=== PATIENT | female | born 1940 | race Caucasian/White ===

== ENCOUNTER → 2021-01-25 13:07 | Outpatient (CLI) | payer MEDICARE, OTHER, SELFPAY ==
[2021-01-25 14:55] LABS: Erythrocyte Sedimentation Rate 27 mm/hr (0-30)
[2021-01-25 15:25] LABS: CRP < 2.90 mg/L (0.0-3.0); Rheumatoid Factor < 10.0 IU/mL (<15)
[2021-01-27 14:09] LABS: Anti-Scleroderma-70 AB <0.2 AI (0.0-0.9)
[2021-01-27 15:00] LABS: ANTINUCLEAR ANTIBODIES DIRECT Negative (Negative); Anti-dsDNA Ab 1 IU/mL (0-9)
[2021-01-28 10:44] LABS: Angiotensin Convert Enzyme 32 U/L (14-82); Cytoplasmic Ab (C-ANCA) <1:20 titer (Neg:<1:20)
[2021-01-28 10:53] LABS: CCP IgG Antibodies 8 units (0-19); Perinuclear Ab (P-ANCA) <1:20 titer (Neg:<1:20)
== END ==
PROVIDERS: PCP Family Medicine; Referring Provider Internal Medicine Pulmonary Disease; Visit Provider Internal Medicine Pulmonary Disease
DX: J84.10 Pulmonary fibrosis, unspecified (principal); I10 Essential (primary) hypertension
CPT/HCPCS: 36415; 82164; 85652; 86038; 86140; 86200; 86225; 86235; 86256; 86431

== ENCOUNTER 2021-05-13 12:37 | Outpatient (RCR) | payer MEDICARE, OTHER, SELFPAY ==
[2021-05-13 15:23] LABS: AST(SGOT) 24 U/L (15-37); Alanine Aminotransfer ALT/SGPT 30 U/L (13-56); Albumin, Serum 3.2 g/dL (3.2-5.0); Alkaline Phosphatase 79 U/L (45-117); Bilirubin, Direct 0.14 mg/dL (0.00-0.30); Globulin 4.2 g/dL (2.2-4.2); Protein, Total 7.4 g/dL (6.4-8.2)
== END 2021-06-11 18:00 | disposition home or self-care (01) ==
LOC: MTLAB 12:37
PROVIDERS: PCP Family Medicine; Referring Provider Internal Medicine Pulmonary Disease; Visit Provider Internal Medicine Pulmonary Disease
DX: Z79.899 Other long term (current) drug therapy (principal)
CPT/HCPCS: 36415; 80076

== ENCOUNTER 2021-05-19 15:04 | Emergency (ER) | payer MEDICARE, OTHER, SELFPAY ==
[2021-05-19 15:05] VITALS: BP 141/83; PULSE 87; RESP 18; TEMP 37.7; O2SAT 94; BMI 42.0
[2021-05-19 15:21] VITALS: BP 158/83; PULSE 84; RESP 18; O2SAT 95
--- NOTE | 2021-05-19 15:57 | EKG12_ITS ---
Test Reason : DIZZINESS Blood Pressure : / mmHG Vent. Rate : 070 BPM Atrial Rate : 070 BPM P-R Int : 154 ms QRS Dur : 082 ms QT Int : 406 ms P-R-T Axes : 000 -17 022 degrees QTc Int : 438 ms Normal sinus rhythm Inferior infarct , age undetermined Abnormal ECG Confirmed by ISAAC ALMONTE, ALEX ([id number]), video news editor HUMBLE QUIJANO ([id number]) on 05/23/2021 9:36:12 AM Referred By: GUIDO Confirmed By:ALEX GRAY MD
--- NOTE | 2021-05-19 16:02 | EDS_ITS ---
HPI History of Present Illness Chief Complaint: Dizziness Detail of Chief Complaint: Dizziness which patient defines as lightheaded Informant: patient and family Onset/Context/Timing Onset: Today and Hours Context: Sudden Onset Timing: Intermittent Quality: Lightheaded Location: Home Current Severity: Gone Maximum Severity: Severe Worsened by: Upright position Relieved by: Supine Narrative Narrative: Patient is an 81-year-old woman who was recently started on medicine for pulmonary hypertension. An uncommon side effect is dizziness. However patient has symptoms of infection. Patient patient states she was sitting in the chair when she had lightheaded and fell off. She denies head trauma. Denies loss conscious. She states her neck is stiff. The neck was stiff prior to the fall. Last evening she felt sick with nausea. She did have episode of vomiting. 10 episode of vomiting when the squad lifted her from the floor. She has been vaccinated for both Covid and influenza. She denies diarrhea. She denies urologic symptoms. She denies the room spinning or her spinning Prior similar symptoms: No Recent Illness/Hospitalization: No PFSH PFSH Medical History Hypertension Non-smoker Pulmonary fibrosis Home Medications aspirin 81 mg PO DAILY 05/19/21 [History Last Taken Unknown] atenolol 100 mg PO QHS 05/19/21 [History Last Taken Unknown] atorvastatin 20 mg PO QHS 05/19/21 [History Last Taken Unknown] doxazosin 2 mg PO DAILY 05/19/21 [History Last Taken Unknown] niacin 500 mg PO DAILY 05/19/21 [History Last Taken Unknown] nintedanib [Ofev] 150 mg PO BID 05/19/21 [History Last Taken Unknown] sulfamethoxazole-trimethoprim 1 tab PO BID #14 tablet 05/19/21 [Rx Last Taken Unknown] Allergy/AdvReac Type Severity Reaction Status Date / Time No Known Allergies Allergy Verified 05/19/21 15:06 Surgical History History of partial hysterectomy History of total right knee replacement Social History (Updated 05/19/21 @ 16:[address] Deep Jimenez MD) household members: family Smoking Status: Never smoker substance use type: does not use ROS ROS ED Constitutional Constitutional ED: Reports chills and sweats; Denies fever(s) Eyes Eyes: Denies blurry vision, change in vision or diplopia ENT ENT ED: Denies ear pain, rhinorrhea or sore throat Cardiovascular Cardiovascular: Denies chest pain, orthopnea, palpitations or paroxysmal nocturnal dyspnea Respiratory/Chest Respiratory/Chest: Reports cough, dyspnea and dyspnea on exertion; Denies orthopnea, paroxysmal nocturnal dyspnea or sputum Gastrointestinal Gastrointestinal: Reports nausea and vomiting; Denies abdominal pain, constipation, diarrhea or melena Genitourinary Genitourinary ED: Denies dysuria, hematuria or urinary frequency Musculoskeletal Musculoskeletal: Denies arthralgias, back pain, myalgias or neck pain Integumentary Denies abscess, Abrasions or rash Neurologic Neurologic: Reports weakness; Denies headache(s) or paresthesias Endocrine Endocrinology: Denies polydipsia, polyphagia or polyuria EXAM Physical Exam Const Vital Signs: 05/19/21 15:05 05/19/21 15:21 05/19/21 15:23 Temperature 99.9 F H Temperature Source Temporal Pulse Rate 87 84 Pulse Rate [Lying] Pulse Rate [Sitting] Pulse Rate [Standing] Respiratory Rate 18 18 Respiratory Effort Normal Respiratory Pattern Normal Blood Pressure 141/83 H 158/83 H Blood Pressure [Lying] Blood Pressure [Sitting] Blood Pressure [Standing] Blood Pressure Mean 102 108 Blood Pressure Mean [Lying] Blood Pressure Mean [Sitting] Blood Pressure Mean [Standing] Pulse Ox 94 95 Oxygen Delivery Method Room Air Room Air 05/19/21 16:32 05/19/21 17:30 05/19/21 18:43 Temperature Temperature Source Pulse Rate 67 63 Pulse Rate [Lying] 66 Pulse Rate [Sitting] 70 Pulse Rate [Standing] 82 Respiratory Rate 21 H 18 Respiratory Effort Respiratory Pattern Blood Pressure 143/75 H 147/89 H Blood Pressure [Lying] 139/73 H Blood Pressure [Sitting] 148/100 H Blood Pressure [Standing] 130/100 H Blood Pressure Mean 97 108 Blood Pressure Mean [Lying] 95 Blood Pressure Mean [Sitting] 116 Blood Pressure Mean [Standing] 110 Pulse Ox 95 95 Oxygen Delivery Method Room Air Room Air Positive well nourished and well developed General Appearance ED: well developed; Negative for cyanotic, diaphoretic, NAD or pallor HEENT Reports dry mucous membranes; Denies TM's clear Negative for trauma or tenderness Tympanic Membrane ED: Negative for TM's clear Mouth ED: Yes dry mucous membranes Mouth: dry mucous membranes Eyes PERRL and EOMs intact bilaterally Eyes Narrative: There is no nystagmus with central gaze or lateral gaze. General Eye ED: Negative for pale conjunctiva or scleral icterus Neck no lymphadenopathy, supple and no JVD General: tenderness Chest Wall inspection of chest normal and palpation of chest normal Resp No normal respiratory effort and No clear to auscultation bilaterally Auscultation: rales bilateral base (Right greater than left) Cardio regular rate, regular rhythm, S1 normal heart sound, S2 normal heart sound and no murmurs GI normal to inspection, nondistended, normoactive bowel sounds, non-tender and non-distended Palpation: soft Back/Spine no CVA tenderness Cervical Spine: Negative for cervical spine tenderness Thoracic Spine / Upper Back: Negative for thoracic spinal tenderness or paraspinal muscle tenderness Extremity normal to inspection General Extremety ED: Negative for edema or tenderness General Extremity: Negative for edema Neuro oriented x3, CN's II-XII intact bilaterally and no sensory deficits noted Sensorium / Orientation: alert Motor Exam: strength 5/5 throughout Psych mental status grossly normal Skin no rashes or lesions noted and no wounds General Skin Exam: Negative for jaundice or pallor MDM MDM MDM Narrative Medical decision making narrative: Presents with infectious-like symptoms and orthostatic symptoms. Fluid bolus was ordered. Even though she was vaccinated will test for Covid. Chest x-ray was obtained to confirm suspicion for pneumonia based on auscultatory findings. EKG to rule out ischemia. Appropriate blood work. Lab Data Attestation: I reviewed the patient's lab results. Lab results narrative: Patient has no sirs criteria. Urine is consistent with infection. Patient is a candidate for outpatient therapy. Labs: Laboratory Results - last 24 hr 05/19/21 05/19/21 05/19/21 16:11 16:11 16:11 WBC 10.6 RBC 4.07 L Hgb 12.4 Hct 36.2 L MCV 88.9 MCH 30.5 MCHC 34.3 RDW Std Deviation 49.3 H RDW Coeff of Nona 15.2 H Plt Count 188 MPV 10.2 Immature Gran % (Auto) 0.600 Neut % (Auto) 88.8 H Lymph % (Auto) 2.7 L [place] % (Auto) 5.8 Eos % (Auto) 1.9 Baso % (Auto) 0.2 Absolute Neuts (auto) 9.4 H Absolute Lymphs (auto) 0.29 L Nucleated RBC % 0 Differential Comment SEE COMMENT Platelet Estimate ADEQUATE RBC Morphology N CHROM Anisocytosis RARE Macrocytosis RARE Sodium 140 Potassium 4.0 Chloride 106 Carbon Dioxide 26.0 Anion Gap 8 BUN 17 Creatinine 0.85 Estim Creat Clear Calc 41.05 Est GFR (MDRD) Af Amer 83 Est GFR (MDRD) Non-Af 68 BUN/Creatinine Ratio 20.0 Glucose 154 H Lactic Acid 1.8 Calcium 8.8 Urine Color Urine Clarity Urine pH Ur Specific [place] Urine Protein Urine Glucose (UA) Urine Ketones Urine Occult Blood Urine Nitrite Urine Bilirubin Urine Urobilinogen Ur Leukocyte Esterase Urine RBC Urine WBC Ur Squamous Epith Cells Urine Bacteria Urine Mucus 05/19/21 18:50 WBC RBC Hgb Hct MCV MCH MCHC RDW Std Deviation RDW Coeff of [place] Plt Count MPV Immature Gran % (Auto) Neut % (Auto) Lymph % (Auto) [place] % (Auto) Eos % (Auto) Baso % (Auto) Absolute Neuts (auto) Absolute Lymphs (auto) Nucleated RBC % Differential Comment Platelet Estimate RBC Morphology Anisocytosis Macrocytosis Sodium Potassium Chloride Carbon Dioxide Anion Gap BUN Creatinine Estim Creat Clear Calc Est GFR (MDRD) Af Amer Est GFR (MDRD) Non-Af BUN/Creatinine Ratio Glucose Lactic Acid Calcium Urine Color Yellow Urine Clarity Cloudy Urine pH 7.0 Ur Specific [place] 1.010 Urine Protein 30 H Urine Glucose (UA) Normal Urine Ketones 5 H Urine Occult Blood 25 H Urine Nitrite Negative Urine Bilirubin Negative Urine Urobilinogen 1 H Ur Leukocyte Esterase 500 H Urine RBC 0-5 SEEN Urine WBC 25-50 SEEN Ur Squamous Epith Cells 0-5 SEEN Urine Bacteria 2+ Urine Mucus 0 SEEN EKG Initial EKG: Attestation: I personally reviewed and interpreted this EKG as follows: Interpretation: Sinus Rhythm (Ventricular rate 70. MS interval 154 ms. QRS duration 82 ms. QT duration 406 ms. [place] is normal.) Discharge Plan Triage Chief Complaint: Dizziness ED Provider: Deep Jimenez Dx/Rx/DC Orders Clinical Impression: Orthostatic dizziness, Urinary tract infection Prescriptions: New sulfamethoxazole-trimethoprim [sulfamethoxazole-trimethoprim] 1 TABLET tablet 1 tab PO BID Qty: 14 RF: 0 No Action atorvastatin 20 mg tablet 20 mg PO QHS RF: 0 atenolol 100 mg tablet 100 mg PO QHS RF: 0 niacin 500 mg tablet extended release 24 hr 500 mg PO DAILY RF: 0 aspirin 81 mg Tablet 81 mg PO DAILY RF: 0 doxazosin 2 mg tablet 2 mg PO DAILY RF: 0 Ofev 150 mg capsule 150 mg PO BID RF: 0 Primary Care Provider: Angelo Oneil Referrals: Angelo Oneil DO [Primary Care Provider] - 3-5 Days if not improving Disposition Disposition: Home, Self Care
[2021-05-19 16:24] LABS: Absolute Lymphocyte Count 0.29 X10^3/uL (0.83-4.51); Absolute Neutrophil Count 9.4 X10^3/uL (2.0-7.7); Basophil# 0.02 X10^3/uL; Basophil% 0.2 % (0-1); Eosinophils% 1.9 % (0-5); Hematocrit 36.2 % (37-47); Hemoglobin 12.4 g/dL (12.0-15.0); Lymphocyte # 0.29 X10^3/ul (0.83-4.51); Lymphocyte % 2.7 % (19-41); Mean Corp Hgb Conc 34.3 g/dL (32-36); Mean Corpuscular Hgb 30.5 pg (27.0-32.0); Mean Corpuscular Volume 88.9 fL (81-99); Mean Platelet Vol. 10.2 fl (6.2-12.0); Monocyte# 0.62 X10^3/uL; Monocyte% 5.8 % (0-10); NRBC Flagged by Analyzer 0 % (0-5); Neutrophil # 9.42 X10^3/uL (2.7-7.7); Neutrophil % 88.8 % (47-70); POSITIVE DIFFERENTIAL YES; Platelet Count 188 K/mm3 (150-450); RBC Distribution Width CV 15.2 % (11.6-14.6); RBC Distribution Width SD 49.3 fl (35.1-43.9); Red Blood Count 4.07 M/mm3 (4.2-5.4); White Blood Count 10.6 K/mm3 (4.4-11.0)
[2021-05-19 16:28] LABS: Differential Indicated SCAN CRITERIA MET
[2021-05-19 16:32] VITALS: BP 130/100; BP 139/73; BP 148/100; PULSE 66; PULSE 70; PULSE 82
[2021-05-19 16:37] LABS: Anion Gap 8 (5-15); BUN 17 mg/dL (7-18); Calcium,Total 8.8 mg/dL (8.5-10.1); Chloride 106 mmol/L (98-107); Creatinine, Serum 0.85 mg/dL (0.55-1.02); EST Glomerular Filtration Rate 68 mL/min (>60); Est Glom Filt Rate - Afr Amer 83 mL/min (>60); Estimated Creatinine Clearance 41.05 ml/min; Glucose 154 mg/dL (74-106); Sodium Level 140 mmol/L (136-145)
[2021-05-19 16:48] LABS: Lactic Acid 1.8 mmol/L (0.4-1.9)
[2021-05-19 17:08] LABS: Anisocytosis RARE; Macrocytosis RARE; Platelet Estimate ADEQUATE (ADEQ); Red Cell Morphology N CHROM NORMAL (NORM C&C)
[2021-05-19 17:30] VITALS: BP 143/75; PULSE 67; RESP 21; O2SAT 95
[2021-05-19 18:43] VITALS: BP 147/89; PULSE 63; RESP 18; O2SAT 95
[2021-05-19 19:08] LABS: Mucous, Urine 0 SEEN /hpf (<or=2+)
[2021-05-19 19:11] LABS: Color, Urine Yellow (Yellow); Glucose, Dipstick Normal (Normal); Ketone-Dipstick 5 mg/dl (Negative); Leukocyte Esterase-Dipstick 500 /ul (Negative); Nitrite-Dipstick Negative (Negative); Occult Blood-Urine 25 /ul (Negative); Protein-Dipstick 30 mg/dl (Negative); Urine Bilirubin Dipstick Negative (Negative); Urine Clarity Cloudy (Clear); Urine Urobilinogen 1 mg/dl (Normal)
[2021-05-19 19:35] LABS: Squamous Epithelial Cells - UA 0-5 SEEN /hpf (5-10); White Blood Cells 25-50 SEEN /hpf (0-5)
[2021-05-19 19:37] LABS: Bacteria 2+ /hpf (None Seen); Red Blood Cells-Urine 0-5 SEEN /hpf (0-5)
[2021-05-19 20:00] VITALS: BP 109/65; PULSE 64; RESP 18; O2SAT 94
[2021-05-19] MEDS: Smz/Tmp Ds Tablet 1 TABLET PO (20:04)
== END 2021-05-19 20:14 | disposition home or self-care (01) ==
PROVIDERS: Emergency Provider Emergency Medicine; PCP Family Medicine
DX: R42 Dizziness and giddiness (principal); N39.0 Urinary tract infection, site not specified; I10 Essential (primary) hypertension; I27.20 Pulmonary hypertension, unspecified; Z79.899 Other long term (current) drug therapy; Z79.82 Long term (current) use of aspirin
CPT/HCPCS: 80048; 81001; 83605; 85025; 87426; 93005; 96360; 96361; 99285; J7030; A4216

== ENCOUNTER 2021-08-09 12:32 | Outpatient (RCR) | payer MEDICARE, OTHER, SELFPAY ==
[2021-08-09 15:46] LABS: AST(SGOT) 23 U/L (15-37); Alanine Aminotransfer ALT/SGPT 31 U/L (13-56); Albumin, Serum 3.3 g/dL (3.2-5.0); Alkaline Phosphatase 75 U/L (45-117); Bilirubin, Direct 0.17 mg/dL (0.00-0.30); Globulin 4.1 g/dL (2.2-4.2); Protein, Total 7.4 g/dL (6.4-8.2)
== END 2021-09-08 18:00 | disposition home or self-care (01) ==
LOC: MTLAB 12:32
PROVIDERS: PCP Family Medicine; Referring Provider Internal Medicine Pulmonary Disease; Visit Provider Internal Medicine Pulmonary Disease
DX: J84.10 Pulmonary fibrosis, unspecified (principal); Z79.899 Other long term (current) drug therapy
CPT/HCPCS: 36415; 80076

== ENCOUNTER 2021-09-19 12:42 | Outpatient (RCR) | payer MEDICARE, OTHER, SELFPAY ==
[2021-09-19 15:43] LABS: AST(SGOT) 22 U/L (15-37); Alanine Aminotransfer ALT/SGPT 30 U/L (13-56); Albumin, Serum 3.6 g/dL (3.2-5.0); Alkaline Phosphatase 73 U/L (45-117); Bilirubin, Direct 0.17 mg/dL (0.00-0.30); Globulin 3.8 g/dL (2.2-4.2); Protein, Total 7.4 g/dL (6.4-8.2)
== END 2021-09-19 18:00 ==
LOC: MTLAB 12:42
PROVIDERS: PCP Family Medicine; Referring Provider Internal Medicine Pulmonary Disease; Visit Provider Internal Medicine Pulmonary Disease
DX: J84.10 Pulmonary fibrosis, unspecified (principal); Z79.899 Other long term (current) drug therapy
CPT/HCPCS: 36415; 80076

== ENCOUNTER 2021-10-20 13:16 | Outpatient (RCR) | payer MEDICARE, OTHER, SELFPAY ==
[2021-10-20 15:39] LABS: AST(SGOT) 29 U/L (15-37); Alanine Aminotransfer ALT/SGPT 55 U/L (13-56); Albumin, Serum 3.5 g/dL (3.2-5.0); Alkaline Phosphatase 86 U/L (45-117); Bilirubin, Direct 0.14 mg/dL (0.00-0.30); Globulin 4.1 g/dL (2.2-4.2); Protein, Total 7.6 g/dL (6.4-8.2)
== END 2021-10-20 18:00 | disposition home or self-care (01) ==
LOC: MTLAB 13:16
PROVIDERS: PCP Family Medicine; Referring Provider Internal Medicine Pulmonary Disease; Visit Provider Internal Medicine Pulmonary Disease
DX: J84.10 Pulmonary fibrosis, unspecified (principal); Z79.899 Other long term (current) drug therapy
CPT/HCPCS: 36415; 80076

== ENCOUNTER 2022-01-19 14:11 | Outpatient (RCR) | payer MEDICARE, OTHER, SELFPAY ==
[2022-01-19 18:05] LABS: AST(SGOT) 59 U/L (15-37); Alanine Aminotransfer ALT/SGPT 123 U/L (13-56); Albumin, Serum 3.3 g/dL (3.2-5.0); Alkaline Phosphatase 81 U/L (45-117); Bilirubin, Direct 0.22 mg/dL (0.00-0.30); Protein, Total 7.3 g/dL (6.4-8.2)
== END 2022-01-19 18:00 | disposition home or self-care (01) ==
LOC: MTLAB 14:11
PROVIDERS: PCP Family Medicine; Referring Provider Internal Medicine Pulmonary Disease; Visit Provider Internal Medicine Pulmonary Disease
DX: J84.10 Pulmonary fibrosis, unspecified (principal); Z79.899 Other long term (current) drug therapy
CPT/HCPCS: 36415; 80076

== ENCOUNTER 2022-03-13 13:07 | Outpatient (RCR) | payer MEDICARE, OTHER, SELFPAY ==
[2022-03-13 15:44] LABS: AST(SGOT) 18 U/L (15-37); Alanine Aminotransfer ALT/SGPT 17 U/L (13-56); Albumin, Serum 3.2 g/dL (3.2-5.0); Alkaline Phosphatase 70 U/L (45-117); Bilirubin, Direct 0.14 mg/dL (0.00-0.30); Protein, Total 7.2 g/dL (6.4-8.2)
== END 2022-03-13 18:00 | disposition home or self-care (01) ==
LOC: MTLAB 13:07
PROVIDERS: PCP Family Medicine; Referring Provider Internal Medicine Pulmonary Disease; Visit Provider Internal Medicine Pulmonary Disease
DX: J84.10 Pulmonary fibrosis, unspecified (principal); Z79.899 Other long term (current) drug therapy
CPT/HCPCS: 36415; 80076

== ENCOUNTER 2022-04-17 11:11 | Outpatient (RCR) | payer MEDICARE, OTHER, SELFPAY ==
[2022-04-17 15:46] LABS: AST(SGOT) 15 U/L (15-37); Alanine Aminotransfer ALT/SGPT 16 U/L (13-56); Albumin, Serum 3.3 g/dL (3.2-5.0); Alkaline Phosphatase 69 U/L (45-117); Bilirubin, Direct 0.21 mg/dL (0.00-0.30); Globulin 3.9 g/dL (2.2-4.2); Protein, Total 7.2 g/dL (6.4-8.2)
== END 2022-05-10 18:00 | disposition home or self-care (01) ==
LOC: MTLAB 11:11
PROVIDERS: PCP Family Medicine; Referring Provider Internal Medicine Pulmonary Disease; Visit Provider Internal Medicine Pulmonary Disease
DX: J84.10 Pulmonary fibrosis, unspecified (principal); Z79.899 Other long term (current) drug therapy
CPT/HCPCS: 36415; 80076

== ENCOUNTER → 2022-05-02 | Outpatient (CLI) | payer MEDICARE, OTHER, SELFPAY ==
--- NOTE | 2022-05-02 12:55 | ECHOD_ITS ---
Reason For Study: PAH Procedure This was a 2D Doppler, Color Flow transthoracic echocardiogram. Exam performed in department. Left Ventricle Normal left ventricle. Mild concentric left ventricular hypertrophy. Left ventricular systolic function is normal. The estimated ejection fraction is 60 %. No regional wall motion abnormalities noted. Right Ventricle Normal RV size. Normal systolic function. Atria Normal left atrium. Normal right atrium. Bubble contrast study negative for right to left interatrial shunt. Mitral Valve There is mild to moderate mitral annular calcification. Mild (1+) mitral valve insufficiency. Tricuspid Valve Normal tricuspid valve. Mild (1+) tricuspid valve insufficiency. Pulmonary artery systolic pressure is 34 mmHg. Aortic Valve Trisinus/trileaflet aortic valve. Pulmonic Valve Normal pulmonic valve. Great Vessels Normal aortic root. The pulmonary artery is normal size. Normal inferior vena cava. Pericardium/Pleural No pericardial effusion. MMode/2D Measurements & Calculations LVIDd: 4.0 cm IVSd: 1.3 cm Ao root diam: 3.4 cm LVIDs: 3.0 cm LVPWd: 1.3 cm FS: 24.9 % LAV(MOD-bp): 61.0 ml LVAd ap4: 19.8 cm2 SV(MOD-sp4): 21.0 ml LAV(MOD-bp) Indexed: 31.4 ml/m2 LVLd ap4: 6.7 cm LAV(MOD-sp2): 60.4 ml EDV(MOD-sp4): 48.5 ml LAV(MOD-sp4): 54.4 ml EDV(sp4-el): 49.8 ml LVAs ap4: 13.7 cm2 LVLs ap4: 5.8 cm ESV(MOD-sp4): 27.4 ml ESV(sp4-el): 27.3 ml EF(MOD-sp4): 43.4 % EF(sp4-el): 45.2 % SV(sp4-el): 22.5 ml LA A4 area: 21.1 cm2 LA dimension(2D): 4.6 cm RA A4 area: 12.7 cm2 Time Measurements MV dec time: 0.22 sec Doppler Measurements & Calculations MV E max gera: 61.8 cm/sec Lat Peak E' Gera: 7.9 cm/sec Med Peak E' Gera: 3.6 cm/sec MV A max gera: 98.8 cm/sec E/E' lat: 7.9 E/E' med: 17.2 MV E/A: 0.63 MV V2 max: 103.7 cm/sec Ao V2 max: 130.8 cm/sec MV max P.3 mmHg MV dec slope: 279.2 cm/sec2 Ao max P.9 mmHg MV V2 mean: 50.5 cm/sec Ao V2 mean: 88.9 cm/sec MV mean P.2 mmHg Ao mean P.6 mmHg MV V2 VTI: 30.4 cm Ao V2 VTI: 32.2 cm LV V1 max: 99.2 cm/sec MR max gera: 506.0 cm/sec PA V2 max: 93.5 cm/sec LV V1 max P.9 mmHg MR max P.6 mmHg PA V2 mean: 67.6 cm/sec LV V1 mean P.9 mmHg LV V1 mean: 64.3 cm/sec LV V1 VTI: 24.3 cm TR max gera: 280.3 cm/sec TR max P.4 mmHg ECHO/Echo Complete Interpretation Summary Normal left ventricle. Mild concentric left ventricular hypertrophy. Left ventricular systolic function is normal. The estimated ejection fraction is 60 %. Bubble contrast study negative for right to left interatrial shunt. Mild (1+) mitral valve insufficiency. Pulmonary artery systolic pressure is 34 mmHg. Ordering Physician: Medardo Pearce V Referring Physician: Medardo Pearce V Performed By: Tasha Kelly RCS
== END | disposition home or self-care (01) ==
LOC: CVS 12:54
PROVIDERS: PCP Family Medicine; Referring Provider Internal Medicine Pulmonary Disease; Visit Provider Internal Medicine Pulmonary Disease
DX: R06.00 Dyspnea, unspecified (principal)
CPT/HCPCS: 93306; A4216

== ENCOUNTER 2022-05-18 11:22 | Outpatient (RCR) | payer MEDICARE, OTHER, SELFPAY ==
[2022-05-18 15:40] LABS: AST(SGOT) 22 U/L (15-37); Alanine Aminotransfer ALT/SGPT 24 U/L (13-56); Albumin, Serum 3.3 g/dL (3.2-5.0); Alkaline Phosphatase 73 U/L (45-117); Bilirubin, Direct 0.13 mg/dL (0.00-0.30); Globulin 3.6 g/dL (2.2-4.2); Protein, Total 6.9 g/dL (6.4-8.2)
== END 2022-05-18 18:00 | disposition home or self-care (01) ==
LOC: MTLAB 11:22
PROVIDERS: PCP Family Medicine; Referring Provider Internal Medicine Pulmonary Disease; Visit Provider Internal Medicine Pulmonary Disease
DX: J84.10 Pulmonary fibrosis, unspecified (principal); Z79.899 Other long term (current) drug therapy
CPT/HCPCS: 36415; 80076

== ENCOUNTER 2022-06-16 13:53 | Outpatient (RCR) | payer MEDICARE, OTHER, SELFPAY ==
[2022-06-16 15:59] LABS: AST(SGOT) 15 U/L (15-37); Alanine Aminotransfer ALT/SGPT 17 U/L (13-56); Albumin, Serum 3.3 g/dL (3.2-5.0); Alkaline Phosphatase 76 U/L (45-117); Bilirubin, Direct 0.17 mg/dL (0.00-0.30); Globulin 4.4 g/dL (2.2-4.2); Protein, Total 7.7 g/dL (6.4-8.2)
== END 2022-06-16 15:53 | disposition home or self-care (01) ==
LOC: MTLAB 13:53
PROVIDERS: PCP Family Medicine; Referring Provider Internal Medicine Pulmonary Disease; Visit Provider Internal Medicine Pulmonary Disease
DX: J84.10 Pulmonary fibrosis, unspecified (principal); Z79.899 Other long term (current) drug therapy
CPT/HCPCS: 36415; 80076

== ENCOUNTER 2022-07-10 13:36 | Emergency (ER) | payer MEDICARE, OTHER, SELFPAY ==
[2022-07-10 13:40] VITALS: BP 128/62; PULSE 99; RESP 26; TEMP 36.9; O2SAT 96; BMI 40.0
[2022-07-10 13:43] VITALS: BP 128/62; PULSE 99; RESP 25; TEMP 36.9; O2SAT 93
--- NOTE | 2022-07-10 14:05 | EX.ED.DYSGE1 ---
HPI History of Present Illness Chief Complaint: Dizziness Informant: patient and EMS Narrative Narrative: Patient presents as via EMS after having a minor fall without injury due to feeling dizzy/vertiginous this morning after getting up. She states she was unable to get up and her 83-year-old was not able to help lift her. EMS came to help her up, she was able to stand with their assistance and walk without difficulty, although she states she felt a little dizzy, and her blood pressure was in the 80s. That is not the case now. They did not intervene. Patient states she never felt lightheaded, near syncopal, or syncopal. She states this dizziness/spinning sensation occurs every single morning when she gets up it is intermittent, it is worse with position changes and turning her head, and usually by 11:30 AM the dizziness is gone and she goes the rest of the day without any dizziness. She states this has been the case every single morning for the last 2+ years since she has been on a new medication for her pulmonary fibrosis, Ofev. She states the dizziness is not new nor is it worse in the past week since she has felt like she had a cold. Her symptoms have been congestion, rhinorrhea, and cough with sputum that she feels like she is bringing up from her chest. She has albuterol aerosols at home, she has been doing nose periodically since she has had this cold for mild dyspnea, the albuterol helps. She denies any fevers, although she did feel some chills last night for the first time. She has been vaccinated against COVID and influenza. She denies any known exposures to any of those that she knows of. She denies any edema in her legs that is new or worse. She denies any other focal neurologic symptoms, ringing in her ears, earache, changes in her hearing, diplopia, or headache. [facility] Medical History Hypertension Non-smoker Pulmonary fibrosis Home Medications aspirin 81 mg tablet 81 mg PO DAILY 05/19/21 [History Last Taken Unknown] atenolol 100 mg tablet 100 mg PO QHS 05/19/21 [History Last Taken Unknown] atorvastatin 20 mg tablet 20 mg PO QHS 05/19/21 [History Last Taken Unknown] doxazosin 2 mg tablet 2 mg PO DAILY 05/19/21 [History Last Taken Unknown] niacin 500 mg tablet,extended release 24 hr 500 mg PO DAILY 05/19/21 [History Last Taken Unknown] nintedanib 150 mg capsule (Ofev) 150 mg PO BID 05/19/21 [History Last Taken Unknown] sulfamethoxazole 800 mg-trimethoprim 160 mg tablet 1 tab PO BID #14 TABLETS 05/19/21 [Rx Last Taken Unknown] albuterol sulfate 90 mcg/actuation aerosol inhaler inhalation 07/10/22 [History Last Taken Unknown] azithromycin 250 mg tablet 250 mg PO DAILY #4 TABLETS 07/10/22 [Rx Last Taken Unknown] meclizine 25 mg tablet 25 mg PO Q8H PRN PRN Dizziness #20 tabs 07/10/22 [Rx Last Taken Unknown] Allergy/AdvReac Type Severity Reaction Status Date / Time No Known Allergies Allergy Verified 05/19/21 15:06 Surgical History History of partial hysterectomy History of total right knee replacement Social History household members: family Smoking Status: Never smoker substance use type: does not use ROS ROS ED Constitutional Constitutional ED: Reports chills; Denies fever(s) Eyes Eyes: Denies change in vision or diplopia ENT ENT ED: Reports as per HPI, nasal congestion, rhinorrhea and vertigo; Denies ear pain, headache(s) or sore throat Cardiovascular Cardiovascular: Denies chest pain or palpitations Respiratory/Chest Respiratory/Chest: Reports cough and dyspnea Gastrointestinal Gastrointestinal: Denies abdominal pain, diarrhea, nausea or vomiting Genitourinary Genitourinary ED: Denies dysuria or hematuria Musculoskeletal Musculoskeletal: Denies back pain or neck pain Integumentary Denies abscess or rash Neurologic Neurologic: Denies headache(s), paresthesias or weakness Psychiatric Psychiatric: Denies anxiety or suicidal thoughts EXAM Physical Exam Const Vital Signs: 07/10/22 13:40 07/10/22 13:43 07/10/22 13:43 Temperature 98.5 F 98.5 F Temperature Source Temporal Temporal Pulse Rate 99 99 Respiratory Rate 26 H 25 H Respiratory Effort Normal Non-Labored Respiratory Depth Normal Respiratory Pattern Tachypnea Blood Pressure 128/62 H 128/62 H Blood Pressure Mean 84 84 Pulse Ox 96 93 Oxygen Delivery Method Room Air Room Air Room Air 07/10/22 14:23 07/10/22 15:00 Temperature Temperature Source Pulse Rate 101 H 97 Respiratory Rate 18 20 H Respiratory Effort Respiratory Depth Respiratory Pattern Normal Blood Pressure 147/90 H Blood Pressure Mean 109 Pulse Ox 93 Oxygen Delivery Method Room Air Positive well nourished and well developed Constitutional Narrative: Well-appearing, conversive in full sentences, no distress. Cooperative. Oriented. General Appearance ED: well developed and NAD HEENT Reports TM's clear and moist mucous membranes HEENT Narrative: Posterior oropharynx clear. No sinus tenderness. normocephalic and atraumatic Tympanic Membrane ED: Yes TM's clear Eyes PERRL and EOMs intact bilaterally Neck full ROM and supple Resp normal respiratory effort Resp Narrative: Inspiratory rhonchi diffusely, no expiratory Rales. Conversive in full sentences without distress. Cardio regular rate, regular rhythm and no murmurs GI non-tender and non-distended Auscultation: normoactive bowel sounds Palpation: soft Back/Spine no CVA tenderness General Back: other FROM Extremity normal to inspection General Extremety ED: Negative for edema, pulses abnormal or tenderness General Extremity: Negative for edema or pulses abnormal Neuro oriented x3, CN's II-XII intact bilaterally and no sensory deficits noted Neuro Narrative: Normal [id number] and [id number] bilaterally. No pathologic nystagmus, no vertical or rotatory nystagmus. Sensorium / Orientation: awake and alert Motor Exam: strength 5/5 throughout Psych mental status grossly normal Skin no rashes or lesions noted and no wounds MDM MDM MDM Narrative Medical decision making narrative: This patient basically called EMS for a lift assist. However her blood pressure was on the low side, so they recommended she come to the ED. Her blood pressure has been fine here in the ER, 128/62 and she did not feel lightheaded even when her blood pressure was low. This may have been erroneous, it may have been transient, we will continue to watch it. I do not think she was symptomatic hypotension. The vertiginous symptoms she has had every single morning, this morning she was off balance enough to fall, she is obese and I may have had a part in it but she could not get up because of that and her could not help her. I do not think she needs to have work-up for the vertigo emergently. I did a chest x-ray to evaluate for lower respiratory tract infections since she has pulmonary fibrosis, and it is difficult to evaluate for lower respiratory tract infections based on auscultation. 2 views of my interpretation does show some patchy interstitial infiltrates, radiology in agreement that this may represent pneumonia but she does not have an old one for us to compare it to. I think putting her on antibiotics and steroids to be reasonable. After an aerosol she did not feel much different, we ambulated her and she did okay, she had her pulse ox go down to 89% just very briefly, it antonio back up immediately upon resting. She has had no hypotension while she has been here, in fact without treatment her blood pressure is gone up to 147/90 I do not think she needs to be admitted or have further work-up emergently at this time. I have prescribed her some meclizine to use as needed in the mornings as well to see if that helps with her vertiginous symptoms which may or may not be a result of the biologic she is on for her pulmonary fibrosis. She can discuss whether or not to continue or discontinue that medication with her senior environmental engineer. During the exit interview, there is no other family they are in she reminds the patient and tells me that she was just at her senior environmental engineer seen there during this illness and prescribed prednisone, that she has just finished. She states that it did not make a major difference. She was not prescribed any antibiotics. I think it would be reasonable put her on antibiotics and we are canceling the prednisone. Radiography Diagnostic Testing: Clinical Impression(s) from Imaging Studies Chest X-Ray 07/10/22 14:15 IMPRESSION: Chronic interstitial changes in the lungs with mild right basilar opacity from atelectasis or pneumonia. Electronically Signed: Anne Jansen MD at 14:33 EST , Discharge Plan Triage Chief Complaint: Dizziness Other Complaint: Cold Sx ED Provider: Prabhjot Mcdermott Dx/Rx/DC Orders Clinical Impression: Episodic peripheral vertigo, Acute lower respiratory tract infection, Pulmonary fibrosis Instructions: Pulmonary Fibrosis, ED Vertigo, Unspecified Prescriptions: New azithromycin [azithromycin] 250 mg tablet 250 mg PO DAILY Qty: 4 0RF meclizine [meclizine] 25 mg tablet 25 mg PO Q8H PRN PRN (Reason: Dizziness) Qty: 20 0RF No Action atorvastatin 20 mg tablet 20 mg PO QHS atenolol 100 mg tablet 100 mg PO QHS niacin 500 mg tablet extended release 24 hr 500 mg PO DAILY aspirin 81 mg Tablet 81 mg PO DAILY doxazosin 2 mg tablet 2 mg PO DAILY Ofev 150 mg capsule 150 mg PO BID sulfamethoxazole-trimethoprim [sulfamethoxazole-trimethoprim] 1 TABLET tablet 1 tab PO BID Qty: 14 0RF Primary Care Provider: Angelo Oneil Referrals: Angelo Oneil DO [Primary Care Provider] - Medardo Pearce MD [Med Staff - Active Staff] - 3-5 Days if not improving Disposition Disposition: Home, Self Care
--- NOTE | 2022-07-10 14:15 | RAD_ITS ---
HISTORY: cough, SOB. TECHNIQUE: XR Chest 2 Views. COMPARISON: None. FINDINGS: CARDIOMEDIASTINAL BORDERS: Cardiac silhouette within normal limits in size. Mediastinal contour unremarkable with calcification of the aortic knob. LUNGS: Mild peripheral reticular opacities in the lungs with patchy right basilar opacity. Elevation of the right hemidiaphragm. PLEURA: No pleural effusion or pneumothorax seen. OSSEOUS STRUCTURES: Mild degenerative change. RAD/Chest PA and Lateral IMPRESSION: Chronic interstitial changes in the lungs with mild right basilar opacity from atelectasis or pneumonia. Electronically Signed: Anne Jansen MD at 14:33 EST ,
[2022-07-10] MEDS: Ipratropium/Albuterol Sulfate 3 ML AMPUL.NEB INHALATION (14:22)
[2022-07-10 14:23] VITALS: PULSE 101; RESP 18
[2022-07-10 15:00] VITALS: BP 147/90; PULSE 97; RESP 20; O2SAT 93
[2022-07-10 15:17] VITALS: O2SAT 93
--- NOTE | 2022-07-10 15:35 | ED.RN ---
PATIENT SPO2 DID DROP TO 89% BRIEFLY WITH PORTABLE SPO2 MONITOR, DURING WALK BACK TO ROOM PATIENT DID INCREASE BACK TO 90%. DR. ANDRES NOTIFIED THAT IT WAS A BRIEF EVENT AND PATIENT DENIED ANY NEW SHORTNESS OF BREATH AND SPO2 REMAINED IN 90'S FOR WALK AND WHEN SHE WAS BACK IN BED CAME BACK UP TO 93%.
[2022-07-10] MEDS: Meclizine HCl 25 MG Tablet PO (15:53)
[2022-07-10] MEDS: Azithromycin 250 MG Tablet 500 MG PO (15:53)
== END 2022-07-10 16:19 | disposition home or self-care (01) ==
PROVIDERS: Emergency Provider Emergency Medicine; PCP Family Medicine; Visit Provider Emergency Medicine
DX: H81.399 Other peripheral vertigo, unspecified ear (principal); J84.10 Pulmonary fibrosis, unspecified; J22 Unspecified acute lower respiratory infection
CPT/HCPCS: 71046; 87428; 94640; 99283

== ENCOUNTER 2022-07-17 10:19 | Outpatient (RCR) | payer MEDICARE, OTHER, SELFPAY ==
[2022-07-17 12:56] LABS: AST(SGOT) 12 U/L (15-37); Alanine Aminotransfer ALT/SGPT 25 U/L (13-56); Albumin, Serum 2.9 g/dL (3.2-5.0); Alkaline Phosphatase 67 U/L (45-117); Bilirubin, Direct 0.11 mg/dL (0.00-0.30); Globulin 4.6 g/dL (2.2-4.2); Protein, Total 7.5 g/dL (6.4-8.2)
== END 2022-07-17 18:00 | disposition home or self-care (01) ==
LOC: MTLAB 10:19
PROVIDERS: PCP Family Medicine; Referring Provider Internal Medicine Pulmonary Disease; Visit Provider Internal Medicine Pulmonary Disease
DX: J84.10 Pulmonary fibrosis, unspecified (principal); Z79.899 Other long term (current) drug therapy
CPT/HCPCS: 36415; 80076

== ENCOUNTER → 2022-07-20 | Outpatient (CLI) | payer MEDICARE, OTHER, SELFPAY | END | disposition home or self-care (01) | PROVIDERS: PCP Family Medicine | DX: R55 Syncope and collapse (principal) | CPT/HCPCS: 93225; 93226 ==

== ENCOUNTER → 2022-07-28 | Outpatient (CLI) | payer MEDICARE, OTHER, SELFPAY ==
[2022-07-28 12:48] LABS: Absolute Lymphocyte Count 1.43 X10^3/uL (0.83-4.51); Absolute Neutrophil Count 6.3 X10^3/uL (2.0-7.7); Basophil# 0.05 X10^3/uL; Basophil% 0.6 % (0-1); Eosinophil# 0.16 X10^3/uL; Eosinophils% 1.9 % (0-5); Hematocrit 35.4 % (37-47); Hemoglobin 11.8 g/dL (12.0-15.0); Lymphocyte # 1.43 X10^3/ul (0.83-4.51); Lymphocyte % 16.6 % (19-41); Mean Corp Hgb Conc 33.3 g/dL (32-36); Mean Corpuscular Hgb 31.8 pg (27.0-32.0); Mean Corpuscular Volume 95.4 fL (81-99); Mean Platelet Vol. 11.4 fl (6.2-12.0); Monocyte# 0.64 X10^3/uL; Monocyte% 7.4 % (0-10); NRBC Flagged by Analyzer 0 % (0-5); Neutrophil # 6.34 X10^3/uL (2.7-7.7); Neutrophil % 73.3 % (47-70); Platelet Count 236 K/mm3 (150-450); RBC Distribution Width CV 15.8 % (11.6-14.6); RBC Distribution Width SD 55.6 fl (35.1-43.9); Red Blood Count 3.71 M/mm3 (4.2-5.4); White Blood Count 8.6 K/mm3 (4.4-11.0)
[2022-07-28 13:12] LABS: ALB/GLOB Ratio 0.7 RATIO (0.9-2.4); AST(SGOT) 21 U/L (15-37); Alanine Aminotransfer ALT/SGPT 20 U/L (13-56); Alkaline Phosphatase 67 U/L (45-117); Anion Gap 7 (5-15); BUN 16 mg/dL (7-18); Calcium,Total 8.8 mg/dL (8.5-10.1); Chloride 105 mmol/L (98-107); Cholesterol 174 mg/dL (200); Creatinine, Serum 0.76 mg/dL (0.55-1.02); EST Glomerular Filtration Rate 77 mL/min (>60); Est Glom Filt Rate - Afr Amer 94 mL/min (>60); Globulin 4.2 g/dL (2.2-4.2); Glucose 113 mg/dL (74-106); High Density Lipoprotein 59 mg/dL; Protein, Total 7.2 g/dL (6.4-8.2); Sodium Level 141 mmol/L (136-145); Thyroid Stim Hormone (TSH) 2.51 uIU/mL (0.358-3.74); Triglycerides 94 mg/dL; Very Low Density Lipoprotein 19 mg/dL (5-40)
== END | disposition home or self-care (01) ==
LOC: MFPLAB 10:18
PROVIDERS: PCP Family Medicine; Referring Provider Family Medicine; Visit Provider Family Medicine
DX: I10 Essential (primary) hypertension (principal)
CPT/HCPCS: 36415; 80053; 80061; 84443; 85025

== ENCOUNTER → 2022-07-31 | Outpatient (CLI) | payer MEDICARE, OTHER, SELFPAY ==
[2022-07-31 13:40] LABS: Mucous, Urine 0 SEEN /hpf (<or=2+); Red Blood Cells-Urine 0 SEEN /hpf (0-5)
[2022-07-31 15:13] LABS: Color, Urine Yellow (Yellow); Glucose, Dipstick Normal (Normal); Ketone-Dipstick 5 mg/dl (Negative); Leukocyte Esterase-Dipstick 500 /ul (Negative); Nitrite-Dipstick Positive (Negative); Occult Blood-Urine Negative /ul (Negative); Protein-Dipstick Negative (Negative); Specific Gravity, Urine 1.015 (1.002-1.030); Urine Bilirubin Dipstick Negative (Negative); Urine Clarity Sl. Cloudy (Clear); Urine Urobilinogen Normal (Normal)
[2022-07-31 15:21] LABS: Bacteria 3+ /hpf (None Seen); Squamous Epithelial Cells - UA 5-10 SEEN /hpf (5-10); White Blood Cells 25-50 SEEN /hpf (0-5)
== END | disposition home or self-care (01) ==
LOC: LABSPEC 13:38
PROVIDERS: PCP Family Medicine; Visit Provider Family Medicine
DX: I10 Essential (primary) hypertension (principal); R82.81 Pyuria
CPT/HCPCS: 81001; 87086; 87088; 87186

== ENCOUNTER → 2022-08-01 | Outpatient (CLI) | payer MEDICARE, OTHER, SELFPAY ==
[2022-08-01 12:49] LABS: Hemoglobin A1c 6.2 % (3.8-5.6)
[2022-08-01 12:53] LABS: Ferritin 150 ng/mL (8-252); Iron 93 ug/dL (50-170); Iron Binding Capacity,Total 323 ug/dL (250-450)
[2022-08-01 13:12] LABS: Vitamin B12 481 pg/mL (211-911)
[2022-08-02 20:14] LABS: Transferrin 262 mg/dL (149-313)
== END | disposition home or self-care (01) ==
LOC: MFPLAB 09:52
PROVIDERS: PCP Family Medicine; Referring Provider Family Medicine; Visit Provider Family Medicine
DX: E53.8 Deficiency of other specified B group vitamins (principal); D64.9 Anemia, unspecified; R73.09 Other abnormal glucose
CPT/HCPCS: 36415; 82607; 82728; 83036; 83540; 83550; 84466

== ENCOUNTER → 2022-09-22 | Outpatient (CLI) | payer MEDICARE, OTHER, SELFPAY | END | disposition home or self-care (01) | LOC: LABSPEC 17:51 | PROVIDERS: PCP Family Medicine; Visit Provider Family Medicine | DX: R35.0 Frequency of micturition (principal) | CPT/HCPCS: 87086; 87088; 87186 ==

== ENCOUNTER 2022-10-20 13:18 | Outpatient (RCR) | payer MEDICARE, OTHER, SELFPAY ==
[2022-10-20 15:47] LABS: AST(SGOT) 29 U/L (15-37); Alanine Aminotransfer ALT/SGPT 25 U/L (13-56); Albumin, Serum 3.5 g/dL (3.2-5.0); Alkaline Phosphatase 66 U/L (45-117); Bilirubin, Direct 0.16 mg/dL (0.00-0.30); CRP < 2.90 mg/L (0.0-3.0); Globulin 4.4 g/dL (2.2-4.2); Protein, Total 7.9 g/dL (6.4-8.2)
[2022-10-20 16:25] LABS: Erythrocyte Sedimentation Rate 43 mm/hr (0-30)
== END 2022-10-20 14:18 | disposition home or self-care (01) ==
LOC: MTLAB 13:18
PROVIDERS: PCP Family Medicine; Referring Provider Internal Medicine Pulmonary Disease; Visit Provider Internal Medicine Pulmonary Disease
DX: J84.10 Pulmonary fibrosis, unspecified (principal); Z79.899 Other long term (current) drug therapy
CPT/HCPCS: 36415; 80076; 85652; 86140

== ENCOUNTER → 2022-10-25 | Outpatient (CLI) | payer MEDICARE, OTHER, SELFPAY ==
--- NOTE | 2022-10-25 17:42 | STRESSREP ---
Stress Test Report Pharmacologic myocardial perfusion stress test. 82-year-old lady with a history of atrial fibrillation Resting EKG demonstrates sinus rhythm with a rate of 69 bpm. Resting blood pressure is 133/88 mmHg. 0.4 mg of regadenoson was infused per usual protocol followed by rapid intravenous saline flush injection. Continuous EKG monitoring was performed. The maximum heart rate was 102 bpm which was 73% of max impacted heart rate the maximum workload was 1 metabolic equivalent. At rest there were no ST or T wave changes noted to suggest ischemia and at peak infusion nonspecific ST changes were noted which did not meet the criteria for ischemia. No clinical angina is noted. The final blood pressure was 134/82 mmHg. Myocardial perfusion protocol. 13.1 mCi of technetium 99m sestamibi was injected at rest. 0.4 mg of regadenoson was infused per usual protocol. At peak infusion 40.2 mCi of technetium 99m sestamibi was injected stress images were obtained stress and rest images were reconstructed and compared in the short axis vertical long and horizontal long axis. Gated images were also obtained. Perfusion SPECT analysis: Review of the stress images demonstrate normal uptake of tracer noted in all areas of the myocardium. The resting images similar demonstrated normal uptake of tracer noted in all areas of the myocardium. No areas of reversibility are noted to suggest ischemia and no previous infarct is noted. Gated SPECT analysis: The gated ejection fraction is 71%. Conclusion: Normal pharmacologic myocardial perfusion stress test. PReserved ejection fraction.
== END | disposition home or self-care (01) ==
LOC: CVS 06:33
PROVIDERS: PCP Family Medicine; Referring Provider Internal Medicine Cardiovascular Disease; Visit Provider Internal Medicine Cardiovascular Disease
DX: I48.0 Paroxysmal atrial fibrillation (principal); R94.31 Abnormal electrocardiogram [ECG] [EKG]
CPT/HCPCS: 78452; 93017; A9500; A4216; J2785

== ENCOUNTER → 2023-01-03 | Outpatient (CLI) | payer MEDICARE, OTHER, SELFPAY ==
[2023-01-03 18:08] LABS: Absolute Neutrophil Count 6.4 X10^3/uL (2.0-7.7); Basophil# 0.06 X10^3/uL; Basophil% 0.6 % (0-1); Eosinophil# 0.25 X10^3/uL; Eosinophils% 2.6 % (0-5); Hematocrit 40.3 % (37-47); Hemoglobin 12.9 g/dL (12.0-15.0); Mean Corpuscular Hgb 30.6 pg (27.0-32.0); Mean Corpuscular Volume 95.5 fL (81-99); Mean Platelet Vol. 12.4 fl (6.2-12.0); Monocyte# 0.69 X10^3/uL; Monocyte% 7.2 % (0-10); NRBC Flagged by Analyzer 0 % (0-5); Neutrophil # 6.42 X10^3/uL (2.7-7.7); Neutrophil % 67.2 % (47-70); Platelet Count 229 K/mm3 (150-450); RBC Distribution Width CV 14.1 % (11.6-14.6); RBC Distribution Width SD 49.4 fl (35.1-43.9); Red Blood Count 4.22 M/mm3 (4.2-5.4); White Blood Count 9.6 K/mm3 (4.4-11.0)
[2023-01-03 18:20] LABS: ALB/GLOB Ratio 0.9 RATIO (0.9-2.4); AST(SGOT) 26 U/L (15-37); Alanine Aminotransfer ALT/SGPT 28 U/L (13-56); Albumin, Serum 3.7 g/dL (3.2-5.0); Alkaline Phosphatase 74 U/L (45-117); Anion Gap 3 (5-15); BUN 31 mg/dL (7-18); Calcium,Total 9.4 mg/dL (8.5-10.1); Chloride 108 mmol/L (98-107); Cholesterol 128 mg/dL (200); Creatinine, Serum 0.86 mg/dL (0.55-1.02); EST Glomerular Filtration Rate 67 mL/min (>60); Est Glom Filt Rate - Afr Amer 81 mL/min (>60); Globulin 4.2 g/dL (2.2-4.2); Glucose 102 mg/dL (74-106); High Density Lipoprotein 48 mg/dL; Magnesium 2.1 mg/dL (1.6-2.6); Potassium 3.8 mmol/L (3.5-5.1); Protein, Total 7.9 g/dL (6.4-8.2); Sodium Level 140 mmol/L (136-145); Triglycerides 86 mg/dL; Very Low Density Lipoprotein 17 mg/dL (5-40)
[2023-01-03 18:27] LABS: Hemoglobin A1c 5.8 % (3.8-5.6); Vitamin B12 428 pg/mL (211-911)
== END | disposition home or self-care (01) ==
PROVIDERS: PCP Family Medicine; Referring Provider Family Medicine; Visit Provider Family Medicine
DX: R73.02 Impaired glucose tolerance (oral) (principal); E78.5 Hyperlipidemia, unspecified; I10 Essential (primary) hypertension
CPT/HCPCS: 80053; 80061; 82607; 83036; 83735; 85025

== ENCOUNTER → 2023-05-07 | Outpatient (CLI) | payer MEDICARE, OTHER, SELFPAY ==
[2023-05-07 15:45] LABS: Mucous, Urine 0 SEEN /hpf (<or=2+); Red Blood Cells-Urine 0 SEEN /hpf (0-5)
[2023-05-07 17:37] LABS: Color, Urine Yellow (Yellow); Glucose, Dipstick Normal (Normal); Ketone-Dipstick 5 mg/dl (Negative); Leukocyte Esterase-Dipstick 500 /ul (Negative); Nitrite-Dipstick Positive (Negative); Occult Blood-Urine 25 /ul (Negative); Protein-Dipstick 15 mg/dl (Negative); Urine Bilirubin Dipstick Negative (Negative); Urine Clarity Cloudy (Clear); Urine Urobilinogen 1 mg/dl (Normal)
[2023-05-07 17:47] LABS: Absolute Lymphocyte Count 1.91 X10^3/uL (0.83-4.51); Absolute Neutrophil Count 8.2 X10^3/uL (2.0-7.7); Basophil# 0.04 X10^3/uL; Basophil% 0.4 % (0-1); Eosinophil# 0.17 X10^3/uL; Eosinophils% 1.5 % (0-5); Hematocrit 38.5 % (37-47); Hemoglobin 12.3 g/dL (12.0-15.0); Lymphocyte # 1.91 X10^3/ul (0.83-4.51); Lymphocyte % 16.9 % (19-41); Mean Corp Hgb Conc 31.9 g/dL (32-36); Mean Corpuscular Hgb 30.5 pg (27.0-32.0); Mean Corpuscular Volume 95.5 fL (81-99); Mean Platelet Vol. 12.1 fl (6.2-12.0); Monocyte% 8.8 % (0-10); NRBC Flagged by Analyzer 0 % (0-5); Neutrophil # 8.17 X10^3/uL (2.7-7.7); Platelet Count 240 K/mm3 (150-450); RBC Distribution Width CV 14.6 % (11.6-14.6); RBC Distribution Width SD 51.1 fl (35.1-43.9); Red Blood Count 4.03 M/mm3 (4.2-5.4); White Blood Count 11.3 K/mm3 (4.4-11.0)
[2023-05-07 18:00] LABS: Hemoglobin A1c 5.4 % (3.8-5.6); White Blood Cells 25-50 SEEN /hpf (0-5)
[2023-05-07 18:01] LABS: Bacteria 2+ /hpf (None Seen); Squamous Epithelial Cells - UA 5-10 SEEN /hpf (5-10); Vitamin B12 465 pg/mL (211-911)
[2023-05-07 18:11] LABS: ALB/GLOB Ratio 0.8 RATIO (0.9-2.4); AST(SGOT) 20 U/L (15-37); Alanine Aminotransfer ALT/SGPT 19 U/L (13-56); Albumin, Serum 3.4 g/dL (3.2-5.0); Alkaline Phosphatase 77 U/L (45-117); Anion Gap 10 (5-15); BUN 28 mg/dL (7-18); BUN/Creat Ratio 36.1 RATIO (10-20); Calcium,Total 8.7 mg/dL (8.5-10.1); Chloride 106 mmol/L (98-107); Cholesterol 121 mg/dL (200); Creatinine, Serum 0.78 mg/dL (0.55-1.02); EST Glomerular Filtration Rate 75 mL/min (>60); Est Glom Filt Rate - Afr Amer 91 mL/min (>60); Globulin 4.3 g/dL (2.2-4.2); Glucose 103 mg/dL (74-106); High Density Lipoprotein 51 mg/dL; Magnesium 2.1 mg/dL (1.6-2.6); Potassium 3.6 mmol/L (3.5-5.1); Protein, Total 7.7 g/dL (6.4-8.2); Sodium Level 142 mmol/L (136-145); Triglycerides 64 mg/dL; Very Low Density Lipoprotein 13 mg/dL (5-40)
== END | disposition home or self-care (01) ==
PROVIDERS: PCP Family Medicine; Visit Provider Family Medicine
DX: R82.81 Pyuria (principal); I48.0 Paroxysmal atrial fibrillation; I10 Essential (primary) hypertension; E78.5 Hyperlipidemia, unspecified; R73.02 Impaired glucose tolerance (oral); E53.8 Deficiency of other specified B group vitamins
CPT/HCPCS: 36415; 80053; 80061; 81001; 82607; 83036; 83735; 85025; 87086; 87088; 87186

== ENCOUNTER 2023-05-17 12:32 | Emergency (ER) | payer MEDICARE, OTHER, SELFPAY ==
[2023-05-17 12:33] VITALS: BP 127/82; PULSE 82; RESP 15; TEMP 36.6; O2SAT 95; BMI 33.7
[2023-05-17 12:39] VITALS: BP 127/82; PULSE 87; RESP 18; TEMP 36.6; O2SAT 96
[2023-05-17 13:40] LABS: Absolute Neutrophil Count 22.6 X10^3/uL (2.0-7.7); Anion Gap 4 (5-15); BUN 26 mg/dL (7-18); BUN/Creat Ratio 27.9 RATIO (10-20); Basophil# 0.07 X10^3/uL; Basophil% 0.3 % (0-1); Calcium,Total 8.8 mg/dL (8.5-10.1); Chloride 104 mmol/L (98-107); Creatinine, Serum 0.93 mg/dL (0.55-1.02); EST Glomerular Filtration Rate 61 mL/min (>60); Eosinophil# 0.59 X10^3/uL; Eosinophils% 2.2 % (0-5); Est Glom Filt Rate - Afr Amer 74 mL/min (>60); Estimated Creatinine Clearance 36.25 ml/min; Glucose 131 mg/dL (74-106); Hematocrit 41.6 % (37-47); Hemoglobin 13.7 g/dL (12.0-15.0); Lymphocyte % 5.6 % (19-41); Mean Corp Hgb Conc 32.9 g/dL (32-36); Mean Corpuscular Hgb 30.8 pg (27.0-32.0); Mean Corpuscular Volume 93.5 fL (81-99); Monocyte# 1.81 X10^3/uL; Monocyte% 6.8 % (0-10); NRBC Flagged by Analyzer 0 % (0-5); Neutrophil # 22.57 X10^3/uL (2.7-7.7); Neutrophil % 84.4 % (47-70); POSITIVE DIFFERENTIAL YES; Platelet Count 337 K/mm3 (150-450); Potassium 3.2 mmol/L (3.5-5.1); RBC Distribution Width CV 13.8 % (11.6-14.6); RBC Distribution Width SD 47.1 fl (35.1-43.9); Red Blood Count 4.45 M/mm3 (4.2-5.4); Sodium Level 140 mmol/L (136-145); White Blood Count 26.7 K/mm3 (4.4-11.0)
[2023-05-17 13:41] LABS: Differential Indicated SCAN CRITERIA MET
--- NOTE | 2023-05-17 13:55 | RAD_ITS ---
STUDY: X-RAY CHEST REASON FOR EXAM: Female, 83 years old. Syncope TECHNIQUE: Single AP portable view of the chest. COMPARISON: Comparison is made with prior study dated July 10, 2022. FINDINGS: EKG electrodes are seen. There is elevation of the right hemidiaphragm. Stable increased linear markings at the lung bases worse on the left side suggestive of scarring. Normal size heart. Normal mediastinum and henry. Normal visualized pulmonary arteries. There is atherosclerotic calcification of the aortic arch with tortuosity. There are degenerative changes of the visualized thoracic spine. Normal visualized ribs, clavicles, and shoulders. There is no demonstrated abnormality of the visualized soft tissue structures of the upper abdomen. RAD/Chest 1 View IMPRESSION: Stable increased interstitial markings more prominent at the left lung base suggestive of scarring. Electronically Signed: Kem Zavala MD at 14:13 EST ,
[2023-05-17 14:14] LABS: Differential Comment SCANNED
[2023-05-17] MEDS: 0.9% Normal Saline (1000mL) 1,000 ML 999 ML IV (14:21)
[2023-05-17 14:22] VITALS: BP 105/65; PULSE 78; PULSE 82; RESP 22; TEMP 36.6; O2SAT 95
[2023-05-17 14:36] LABS: Troponin-I HS 11 pg/mL (3.0-54.0)
[2023-05-17 14:49] LABS: Lactic Acid 1.8 mmol/L (0.4-1.9)
[2023-05-17 15:38] VITALS: BP 136/87; PULSE 74; RESP 21; O2SAT 94
--- NOTE | 2023-05-17 16:15 | EDS_ITS ---
HPI History of Present Illness Chief Complaint: Syncope Informant: patient, spouse/S.O. and family Narrative Narrative: 83-year-old female presenting to the emergency room with chief complaint of possible syncope. Patient states that she finished a course of prednisone yesterday for gout. He has also been taking nitrofurantoin for UTI. Patient states she is asymptomatic from the UTI standpoint but was found on 6-month checkup with her doctor. Patient notes a history of atrial fibrillation and sees Dr. Garcia takes atenolol and apixaban. Patient states that today she was standing doing her make-up in the mirror when she suddenly started to fall. She states when she hit the ground she was awake but wonders if she passed out somewhere in between. She denies any prodrome. She denies any palpitations chest pain shortness of breath sweating nausea. She states that when she got to a chair after being helped up she did have an episode of vomiting. She ate breakfast but no lunch yet. He does not believe she injured herself in the fall. [facility] Medical History Abnormal EKG Anemia Essential hypertension Hyperlipidemia Impaired glucose tolerance Non-smoker PAF (paroxysmal atrial fibrillation) Pulmonary fibrosis Home Medications atenolol 100 mg tablet 100 mg PO QHS 05/19/21 [History Last Taken Unknown] atorvastatin 20 mg tablet 20 mg PO QHS 05/19/21 [History Last Taken Unknown] albuterol sulfate 90 mcg/actuation aerosol inhaler inhalation 07/10/22 [History Last Taken Unknown] apixaban 5 mg tablet (Eliquis) 5 mg PO BID 09/14/22 [History Last Taken Unknown] multivitamin 1 tab PO DAILY 09/14/22 [History Last Taken Unknown] Allergy/AdvReac Type Severity Reaction Status Date / Time No Known Allergies Allergy Verified 05/17/23 12:38 Family History Father Sudden cardiac , Onset Age: 62 Sister Heart disease Heart failure Brother Heart disease Heart failure Surgical History History of partial hysterectomy History of total right knee replacement Social History household members: family Smoking Status: Never smoker alcohol intake: never substance use type: does not use caffeine: No ROS ROS ED Constitutional Constitutional ED: Denies chills, fever(s) or weight loss Eyes Eyes: Denies change in vision or diplopia ENT ENT ED: Denies ear pain, rhinorrhea or sore throat Cardiovascular Cardiovascular: Reports other Details: Possible syncope ; Denies chest pain, orthopnea, palpitations or racing heartbeat Respiratory/Chest Respiratory/Chest: Denies cough, dyspnea or orthopnea Gastrointestinal Gastrointestinal: Denies abdominal pain, diarrhea, nausea or vomiting Genitourinary Genitourinary ED: Reports other Details: Recent UTI diagnosis ; Denies dysuria, hematuria or urinary frequency Musculoskeletal Musculoskeletal: Reports other Details: Recent gout flare ; Denies arthralgias or myalgias Integumentary Denies abscess or rash Neurologic Neurologic: Denies headache(s) or weakness Psychiatric Psychiatric: Denies anxiety, depression, suicidal ideation or suicidal thoughts Endocrine Endocrinology: Denies polydipsia, polyphagia or polyuria Allergic/Immunologic Allergic/Immunologic ED: Denies mouth swelling, tongue swelling or urticaria EXAM Physical Exam Narrative Exam Narrative: Patient able to ambulate safely here in the department. Const Vital Signs: 05/17/23 12:33 05/17/23 12:37 05/17/23 12:39 Temperature 97.8 F 97.8 F Temperature Source Oral Oral Pulse Rate 82 87 Respiratory Rate 15 18 Respiratory Effort Normal Non-Labored Respiratory Pattern Normal Blood Pressure 127/82 H 127/82 H Blood Pressure Mean 97 97 Pulse Ox 95 96 Oxygen Delivery Method Room Air Room Air 05/17/23 14:22 05/17/23 14:22 05/17/23 15:38 Temperature 97.8 F Temperature Source Temporal Pulse Rate 78 82 74 Respiratory Rate 22 H 22 H 21 H Respiratory Effort Respiratory Pattern Blood Pressure 105/65 105/65 136/87 H Blood Pressure Mean 78 78 103 Pulse Ox 95 95 94 Oxygen Delivery Method Room Air Room Air Room Air Positive well nourished and well developed General Appearance ED: well developed HEENT Reports normocephalic, head/scalp atraumatic and moist mucous membranes Eyes PERRL and EOMs intact bilaterally Neck no lymphadenopathy, supple and no JVD Resp normal respiratory effort and clear to auscultation bilaterally Cardio regular rate, regular rhythm and no murmurs GI normal to inspection, nondistended, normoactive bowel sounds and non-tender Palpation: soft Back/Spine no CVA tenderness and normal ROM Extremity normal to inspection General Extremety ED: Negative for edema General Extremity: Negative for edema Neuro oriented x3 and CN's II-XII intact bilaterally Sensorium / Orientation: alert Motor Exam: strength 5/5 throughout Psych mental status grossly normal Mood & Affect: Negative for depressed or tearful Skin no rashes or lesions noted and no wounds MDM MDM MDM Narrative Medical decision making narrative: White count elevated 26.7. Lactic acid 1.8 troponin of 11. BMP glucose 131. My independent interpretation of the chest x-ray is no acute process. EKG is atrial fibrillation rate controlled at 76 bpm. She said no significant events on the monitor. History & Record Review Discussion w/independent historian: Patient Additional record(s) reviewed:: Prior outpatient record and Prior labs Lab Data Attestation: I reviewed the patient's lab results. Labs: Laboratory Results - last 24 hr 05/17/23 05/17/23 12:42 14:05 WBC 26.7 H RBC 4.45 Hgb 13.7 Hct 41.6 MCV 93.5 MCH 30.8 MCHC 32.9 RDW Std Deviation 47.1 H RDW Coeff of Nona 13.8 Plt Count 337 MPV 11.0 Immature Gran % (Auto) 0.700 Neut % (Auto) 84.4 H Lymph % (Auto) 5.6 L Whitfield % (Auto) 6.8 Eos % (Auto) 2.2 Baso % (Auto) 0.3 Absolute Neuts (auto) 22.6 H Absolute Lymphs (auto) 1.50 Nucleated RBC % 0 Differential Comment SCANNED Diff Path Review May foll Sodium 140 Potassium 3.2 L Chloride 104 Carbon Dioxide 32.0 Anion Gap 4 L BUN 26 H Creatinine 0.93 Estim Creat Clear Calc 36.25 Est GFR (MDRD) Af Amer 74 Est GFR (MDRD) Non-Af 61 BUN/Creatinine Ratio 27.9 H Glucose 131 H Lactic Acid 1.8 Calcium 8.8 Troponin I High Sens 11 Radiography Diagnostic Testing: Clinical Impression(s) from Imaging Studies Chest X-Ray 05/17/23 13:55 IMPRESSION: Stable increased interstitial markings more prominent at the left lung base suggestive of scarring. Electronically Signed: Kem Zavala MD at 14:13 EST , EKG Initial EKG: Attestation: I personally reviewed and interpreted this EKG as follows: Comments: Atrial fibrillation with a ventricular rate of 76 bpm. Discharge Plan Triage Chief Complaint: Syncope ED Provider: Daniel Marie Dx/Rx/DC Orders Prescriptions: No Action multivitamin Tablet 1 tab PO DAILY Eliquis 5 mg tablet 5 mg PO BID atorvastatin 20 mg tablet 20 mg PO QHS atenolol 100 mg tablet 100 mg PO QHS albuterol sulfate 90 mcg/actuation HFA aerosol inhaler INHALATION Patient Comments: INHALE 2 PUFF BY MOUTH 4 TIMES DAILY NEEDED FOR COUGH/WHEEZING/SHORTNESS OF BREATH Primary Care Provider: Michael Harkins Referrals: Michael Harkins MD [Primary Care Provider] -
[2023-05-17 16:17] LABS: Bacteria 0 SEEN /hpf (None Seen); Mucous, Urine 0 SEEN /hpf (<or=2+); Red Blood Cells-Urine 0 SEEN /hpf (0-5)
[2023-05-17 16:28] LABS: Color, Urine Yellow (Yellow); Glucose, Dipstick Normal (Normal); Ketone-Dipstick Negative (Negative); Leukocyte Esterase-Dipstick Negative /ul (Negative); Nitrite-Dipstick Negative (Negative); Occult Blood-Urine Negative /ul (Negative); Protein-Dipstick 15 mg/dl (Negative); Urine Bilirubin Dipstick Negative (Negative); Urine Clarity Clear (Clear); Urine Urobilinogen Normal (Normal)
[2023-05-17 16:38] LABS: Squamous Epithelial Cells - UA 5-10 SEEN /hpf (5-10); White Blood Cells 0-5 SEEN /hpf (0-5)
[2023-05-17 16:40] VITALS: BP 97/59; PULSE 79; RESP 16; O2SAT 96
[2023-05-18 12:42] LABS: Pathologist Review Reviewed
== END 2023-05-17 16:49 | disposition home or self-care (01) ==
PROVIDERS: Emergency Provider Emergency Medicine; PCP Family Medicine; Visit Provider Emergency Medicine
DX: R55 Syncope and collapse (principal); I48.0 Paroxysmal atrial fibrillation; I10 Essential (primary) hypertension; Z79.899 Other long term (current) drug therapy; Z79.01 Long term (current) use of anticoagulants
CPT/HCPCS: 71045; 80048; 81001; 83605; 84484; 85025; 93005; 99285; J7030; A4216

== ENCOUNTER → 2023-05-31 | Outpatient (CLI) | payer MEDICARE, OTHER, SELFPAY ==
[2023-05-31 15:35] LABS: Hematocrit 38.6 % (37-47); Hemoglobin 12.3 g/dL (12.0-15.0); Mean Corp Hgb Conc 31.9 g/dL (32-36); Mean Corpuscular Hgb 30.4 pg (27.0-32.0); Mean Corpuscular Volume 95.3 fL (81-99); Mean Platelet Vol. 11.2 fl (6.2-12.0); Platelet Count 226 K/mm3 (150-450); RBC Distribution Width CV 14.6 % (11.6-14.6); RBC Distribution Width SD 51.1 fl (35.1-43.9); Red Blood Count 4.05 M/mm3 (4.2-5.4); White Blood Count 10.1 K/mm3 (4.4-11.0)
== END | disposition home or self-care (01) ==
LOC: MTLAB 12:55
PROVIDERS: PCP Family Medicine; Referring Provider Nurse Practitioner Family; Visit Provider Nurse Practitioner Family
DX: D72.829 Elevated white blood cell count, unspecified (principal)
CPT/HCPCS: 36415; 85027

== ENCOUNTER → 2023-09-29 | Outpatient (CLI) | payer MEDICARE, OTHER, SELFPAY ==
--- NOTE | 2023-09-29 09:43 | CT_ITS ---
STUDY: CT Chest W/O Contrast Injection 09/29/2023 9:43 PM REASON FOR EXAM: Female, 83 years old. SOB Individualized dose optimization techniques were used for this CT. TECHNIQUE: Transaxial imaging was performed without contrast material. COMPARISON: None. FINDINGS: There are degenerative changes of the shoulders. There is no pneumothorax. There is no demonstrated pleural abnormality. Peripheral pulmonary fibrosis. There are calcifications of the coronary arteries. Normal mediastinum. Normal hilar regions. Normal pulmonary arteries. There is atherosclerotic calcification of the aortic arch with tortuosity and elongation of the aortic arch and descending thoracic aorta. There are multi-level degenerative changes of the thoracic spine. Gallstones. CT/Chest without Contrast IMPRESSION: Pulmonary fibrosis. Gallstones. Coronary artery disease. Electronically Signed: Dudley Rogel MD at 21:45 EDT ,
== END | disposition home or self-care (01) ==
LOC: CT 09:39
PROVIDERS: PCP Family Medicine; Referring Provider Internal Medicine Pulmonary Disease; Visit Provider Internal Medicine Pulmonary Disease
DX: R06.02 Shortness of breath (principal)
CPT/HCPCS: 71250

== ENCOUNTER → 2023-10-10 | Outpatient (CLI) | payer MEDICARE, OTHER, SELFPAY ==
[2023-10-10 17:47] LABS: Absolute Lymphocyte Count 1.98 X10^3/uL (0.83-4.51); Absolute Neutrophil Count 5.5 X10^3/uL (2.0-7.7); Basophil# 0.04 X10^3/uL; Basophil% 0.5 % (0-1); Eosinophil# 0.19 X10^3/uL; Eosinophils% 2.3 % (0-5); Hematocrit 36.6 % (37-47); Hemoglobin 11.8 g/dL (12.0-15.0); Lymphocyte # 1.98 X10^3/ul (0.83-4.51); Lymphocyte % 23.7 % (19-41); Mean Corp Hgb Conc 32.2 g/dL (32-36); Mean Corpuscular Hgb 30.4 pg (27.0-32.0); Mean Corpuscular Volume 94.3 fL (81-99); Mean Platelet Vol. 11.6 fl (6.2-12.0); Monocyte# 0.58 X10^3/uL; NRBC Flagged by Analyzer 0 % (0-5); Neutrophil # 5.53 X10^3/uL (2.7-7.7); Neutrophil % 66.3 % (47-70); Platelet Count 229 K/mm3 (150-450); RBC Distribution Width CV 14.1 % (11.6-14.6); RBC Distribution Width SD 48.8 fl (35.1-43.9); Red Blood Count 3.88 M/mm3 (4.2-5.4); White Blood Count 8.3 K/mm3 (4.4-11.0)
[2023-10-10 18:11] LABS: Vitamin B12 620 pg/mL (211-911)
[2023-10-10 18:21] LABS: Hemoglobin A1c 5.2 % (3.8-5.6)
[2023-10-10 18:42] LABS: AST(SGOT) 25 U/L (15-37); Alanine Aminotransfer ALT/SGPT 22 U/L (13-56); Albumin, Serum 3.8 g/dL (3.2-5.0); Alkaline Phosphatase 61 U/L (45-117); Anion Gap 5 (5-15); BUN 26 mg/dL (7-18); BUN/Creat Ratio 33.3 RATIO (10-20); Calcium,Total 9.1 mg/dL (8.5-10.1); Chloride 107 mmol/L (98-107); Cholesterol 128 mg/dL (200); Creatinine, Serum 0.78 mg/dL (0.55-1.02); EST Glomerular Filtration Rate 75 mL/min (>60); Est Glom Filt Rate - Afr Amer 91 mL/min (>60); Ferritin 92 ng/mL (8-252); Globulin 3.9 g/dL (2.2-4.2); Glucose 92 mg/dL (74-106); High Density Lipoprotein 57 mg/dL; Iron 65 ug/dL (50-170); Iron Binding Capacity,Total 346 ug/dL (250-450); Potassium 3.9 mmol/L (3.5-5.1); Protein, Total 7.7 g/dL (6.4-8.2); Sodium Level 140 mmol/L (136-145); Thyroid Stim Hormone (TSH) 2.04 uIU/mL (0.358-3.74); Triglycerides 50 mg/dL; Very Low Density Lipoprotein 10 mg/dL (5-40)
== END | disposition home or self-care (01) ==
LOC: MFPLAB 14:13
PROVIDERS: PCP Family Medicine; Visit Provider Family Medicine
DX: R73.02 Impaired glucose tolerance (oral) (principal); I48.0 Paroxysmal atrial fibrillation; I10 Essential (primary) hypertension; D64.9 Anemia, unspecified
CPT/HCPCS: 36415; 80053; 80061; 82607; 82728; 82746; 83036; 83540; 83550; 83735; 84443; 85025

== ENCOUNTER → 2023-10-11 | Outpatient (CLI) | payer MEDICARE, OTHER, SELFPAY ==
[2023-10-11 13:32] LABS: Mucous, Urine 0 SEEN /hpf (<or=2+); Red Blood Cells-Urine 0 SEEN /hpf (0-5)
[2023-10-11 15:11] LABS: Color, Urine Yellow (Yellow); Glucose, Dipstick Normal (Normal); Ketone-Dipstick 5 mg/dl (Negative); Leukocyte Esterase-Dipstick 100 /ul (Negative); Nitrite-Dipstick Positive (Negative); Occult Blood-Urine 10 /ul (Negative); Protein-Dipstick Negative (Negative); Urine Bilirubin Dipstick Negative (Negative); Urine Clarity Sl. Cloudy (Clear); Urine Urobilinogen Normal (Normal)
[2023-10-11 15:17] LABS: Bacteria 3+ /hpf (None Seen); White Blood Cells 5-10 SEEN /hpf (0-5)
[2023-10-11 15:18] LABS: Squamous Epithelial Cells - UA 5-10 SEEN /hpf (5-10)
== END | disposition home or self-care (01) ==
LOC: LABSPEC 10-26 20:12
PROVIDERS: PCP Family Medicine; Visit Provider Family Medicine
DX: I10 Essential (primary) hypertension (principal)
CPT/HCPCS: 81001

== ENCOUNTER → 2024-02-12 | Outpatient (CLI) | payer MEDICARE, OTHER, SELFPAY ==
[2024-02-12 14:11] LABS: Mucous, Urine 0 SEEN /hpf (<or=2+)
[2024-02-12 15:38] LABS: Color, Urine Yellow (Yellow); Glucose, Dipstick Normal (Normal); Ketone-Dipstick 5 mg/dl (Negative); Leukocyte Esterase-Dipstick 500 /ul (Negative); Nitrite-Dipstick Negative (Negative); Occult Blood-Urine 25 /ul (Negative); Protein-Dipstick 30 mg/dl (Negative); Specific Gravity, Urine 1.015 (1.002-1.030); Urine Bilirubin Dipstick Negative (Negative); Urine Clarity Cloudy (Clear); Urine Urobilinogen Normal (Normal)
[2024-02-12 15:47] LABS: Bacteria 4+ /hpf (None Seen); Squamous Epithelial Cells - UA 10-25 SEEN /hpf (5-10); White Blood Cells >100 SEEN /hpf (0-5)
[2024-02-12 15:48] LABS: Hyaline Cast 0-5 SEEN /lpf (0-5)
[2024-02-12 15:50] LABS: Red Blood Cells-Urine 0-5 SEEN /hpf (0-5)
[2024-02-12 15:52] LABS: ALB/GLOB Ratio 0.9 RATIO (0.9-2.4); AST(SGOT) 21 U/L (15-37); Alanine Aminotransfer ALT/SGPT 18 U/L (13-56); Albumin, Serum 3.6 g/dL (3.2-5.0); Alkaline Phosphatase 75 U/L (45-117); Anion Gap 8 (5-15); BUN 26 mg/dL (7-18); BUN/Creat Ratio 24.1 RATIO (10-20); Calcium,Total 9.8 mg/dL (8.5-10.1); Chloride 106 mmol/L (98-107); Cholesterol 142 mg/dL (200); Creatinine, Serum 1.08 mg/dL (0.55-1.02); EST Glomerular Filtration Rate 51 mL/min (>60); Est Glom Filt Rate - Afr Amer 62 mL/min (>60); Globulin 4.1 g/dL (2.2-4.2); Glucose 142 mg/dL (74-106); High Density Lipoprotein 62 mg/dL; Magnesium 2.1 mg/dL (1.6-2.6); Potassium 3.7 mmol/L (3.5-5.1); Protein, Total 7.7 g/dL (6.4-8.2); Sodium Level 143 mmol/L (136-145); Triglycerides 60 mg/dL; Very Low Density Lipoprotein 12 mg/dL (5-40)
[2024-02-12 15:55] LABS: Hemoglobin A1c 5.3 % (3.8-5.6)
[2024-02-12 15:59] LABS: Absolute Lymphocyte Count 2.04 X10^3/uL (0.83-4.51); Absolute Neutrophil Count 7.2 X10^3/uL (2.0-7.7); Basophil# 0.06 X10^3/uL; Basophil% 0.6 % (0-1); Eosinophil# 0.13 X10^3/uL; Eosinophils% 1.3 % (0-5); Hematocrit 36.7 % (37-47); Lymphocyte # 2.04 X10^3/ul (0.83-4.51); Lymphocyte % 20.1 % (19-41); Mean Corp Hgb Conc 32.7 g/dL (32-36); Mean Corpuscular Hgb 30.7 pg (27.0-32.0); Mean Corpuscular Volume 93.9 fL (81-99); Mean Platelet Vol. 11.3 fl (6.2-12.0); Monocyte# 0.71 X10^3/uL; NRBC Flagged by Analyzer 0 % (0-5); Neutrophil # 7.16 X10^3/uL (2.7-7.7); Neutrophil % 70.7 % (47-70); Platelet Count 251 K/mm3 (150-450); RBC Distribution Width CV 14.7 % (11.6-14.6); RBC Distribution Width SD 50.5 fl (35.1-43.9); Red Blood Count 3.91 M/mm3 (4.2-5.4); White Blood Count 10.1 K/mm3 (4.4-11.0)
== END | disposition home or self-care (01) ==
LOC: MFPLAB 13:57
PROVIDERS: PCP Family Medicine; Visit Provider Family Medicine
DX: I10 Essential (primary) hypertension (principal); R73.02 Impaired glucose tolerance (oral)
CPT/HCPCS: 36415; 80053; 80061; 81001; 83036; 83735; 85025

== ENCOUNTER → 2024-03-10 | Outpatient (CLI) | payer MEDICARE, OTHER, SELFPAY ==
[2024-03-10 15:47] LABS: Anion Gap 6 (5-15); BUN 29 mg/dL (7-18); BUN/Creat Ratio 31.2 RATIO (10-20); Calcium,Total 9.3 mg/dL (8.5-10.1); Chloride 106 mmol/L (98-107); Creatinine, Serum 0.93 mg/dL (0.55-1.02); EST Glomerular Filtration Rate 61 mL/min (>60); Est Glom Filt Rate - Afr Amer 74 mL/min (>60); Glucose 132 mg/dL (74-106); Potassium 3.8 mmol/L (3.5-5.1); Sodium Level 142 mmol/L (136-145)
== END | disposition home or self-care (01) ==
LOC: MFPLAB 11:14
PROVIDERS: PCP Family Medicine; Visit Provider Family Medicine
DX: R94.4 Abnormal results of kidney function studies (principal)
CPT/HCPCS: 36415; 80048

== ENCOUNTER → 2024-04-21 | Outpatient (CLI) | payer MEDICARE, OTHER, SELFPAY ==
[2024-04-21 18:22] LABS: CRP < 2.90 mg/L (0.0-3.0)
[2024-04-23 13:08] LABS: Anti-Scleroderma-70 AB <0.2 AI (0.0-0.9); Anti-dsDNA Ab <1 IU/mL (0-9); RNP Ab 0.2 AI (0.0-0.9); SJOGREN'S Anti-SS-A test < 0.2 AI (0.0-0.9); SJOGREN'S Anti-SS-B test < 0.2 AI (0.0-0.9)
[2024-04-23 17:08] LABS: Angiotensin Convert Enzyme 46 U/L (14-82); Anti-Smooth Muscle ABS 8 Units (0-19); CCP IgG Antibodies 8 units (0-19); Cytoplasmic Ab (C-ANCA) <1:20 titer (Neg:<1:20); Perinuclear Ab (P-ANCA) <1:20 titer (Neg:<1:20)
== END | disposition home or self-care (01) ==
PROVIDERS: PCP Family Medicine; Referring Provider Internal Medicine Pulmonary Disease; Visit Provider Internal Medicine Pulmonary Disease
DX: J84.10 Pulmonary fibrosis, unspecified (principal)
CPT/HCPCS: 36415; 82164; 83516; 86037; 86140; 86200; 86225; 86235

== ENCOUNTER → 2024-06-02 | Outpatient (CLI) | payer MEDICARE, OTHER, SELFPAY ==
[2024-06-02 11:45] LABS: Mucous, Urine 0 SEEN /hpf (<or=2+)
[2024-06-02 15:19] LABS: Absolute Lymphocyte Count 1.71 X10^3/uL (0.83-4.51); Absolute Neutrophil Count 6.3 X10^3/uL (2.0-7.7); Basophil# 0.07 X10^3/uL; Basophil% 0.8 % (0-1); Eosinophil# 0.23 X10^3/uL; Eosinophils% 2.6 % (0-5); Hematocrit 39.3 % (37-47); Lymphocyte # 1.71 X10^3/ul (0.83-4.51); Mean Corp Hgb Conc 33.1 g/dL (32-36); Mean Corpuscular Volume 93.8 fL (81-99); Mean Platelet Vol. 11.2 fl (6.2-12.0); Monocyte# 0.63 X10^3/uL; NRBC Flagged by Analyzer 0 % (0-5); Neutrophil # 6.32 X10^3/uL (2.7-7.7); Neutrophil % 70.4 % (47-70); Platelet Count 257 K/mm3 (150-450); RBC Distribution Width CV 14.3 % (11.6-14.6); RBC Distribution Width SD 48.6 fl (35.1-43.9); Red Blood Count 4.19 M/mm3 (4.2-5.4)
[2024-06-02 15:20] LABS: Color, Urine Yellow (Yellow); Glucose, Dipstick Normal (Normal); Ketone-Dipstick Negative (Negative); Leukocyte Esterase-Dipstick 500 /ul (Negative); Nitrite-Dipstick Positive (Negative); Occult Blood-Urine 25 /ul (Negative); Protein-Dipstick 30 mg/dl (Negative); Urine Bilirubin Dipstick Negative (Negative); Urine Clarity Cloudy (Clear); Urine Urobilinogen Normal (Normal)
[2024-06-02 15:37] LABS: Bacteria 3+ /hpf (None Seen); Squamous Epithelial Cells - UA 5-10 SEEN /hpf (5-10); White Blood Cells >100 SEEN /hpf (0-5)
[2024-06-02 15:37] LABS: Vitamin B12 838 pg/mL (211-911)
[2024-06-02 15:38] LABS: Red Blood Cells-Urine 0-5 SEEN /hpf (0-5)
[2024-06-02 15:48] LABS: Hemoglobin A1c 5.6 % (3.8-5.6)
[2024-06-02 16:02] LABS: ALB/GLOB Ratio 0.9 RATIO (0.9-2.4); AST(SGOT) 25 U/L (15-37); Alanine Aminotransfer ALT/SGPT 25 U/L (13-56); Albumin, Serum 3.8 g/dL (3.2-5.0); Alkaline Phosphatase 79 U/L (45-117); Anion Gap 7 (5-15); BUN 22 mg/dL (7-18); BUN/Creat Ratio 27.2 RATIO (10-20); Calcium,Total 9.6 mg/dL (8.5-10.1); Chloride 106 mmol/L (98-107); Cholesterol 157 mg/dL (200); Creatinine, Serum 0.81 mg/dL (0.55-1.02); EST Glomerular Filtration Rate 72 mL/min (>60); Est Glom Filt Rate - Afr Amer 87 mL/min (>60); Globulin 4.2 g/dL (2.2-4.2); Glucose 107 mg/dL (74-106); High Density Lipoprotein 68 mg/dL; Magnesium 2.1 mg/dL (1.6-2.6); Potassium 3.7 mmol/L (3.5-5.1); Sodium Level 141 mmol/L (136-145); Triglycerides 57 mg/dL; Very Low Density Lipoprotein 11 mg/dL (5-40)
== END | disposition home or self-care (01) ==
PROVIDERS: PCP Family Medicine; Referring Provider Internal Medicine Pulmonary Disease; Visit Provider Internal Medicine Pulmonary Disease
DX: I48.0 Paroxysmal atrial fibrillation (principal); I10 Essential (primary) hypertension; E78.5 Hyperlipidemia, unspecified; E53.8 Deficiency of other specified B group vitamins; R73.02 Impaired glucose tolerance (oral)
CPT/HCPCS: 36415; 80053; 80061; 81001; 82607; 83036; 83735; 84443; 85025

== ENCOUNTER → 2024-08-21 | Outpatient (CLI) | payer MEDICARE, OTHER, SELFPAY ==
--- NOTE | 2024-08-21 14:25 | LES_PTH ---
PATIENT: EDUARDO ARRIAGA LOC: ANU U#:[id number] AGE/SX: 84/F ROOM: RE08/21/[address]: Dr. Primitivo Clinton MD : 1940 BED: DIS: 08/21/2024 SPEC #: [id number] RECD: 08/22/24 09:20 STATUS: LIEN CALLES #: [id number] RICKEY: 08/21/24 14:[address]: Primitivo Clinton DEPT: SURGICAL PATHOLOGY RECD BY: Bobby Sosa ENTERED: 08/22/24 09:21 SP TYPE: Lesion OTHR DR: Dr. Michael Harkins MD Tissues: A - Ear, NOS Procedures: Surgery Specimen Level IV HEADER OPERATION: Permanent pathology PRE-OP DIAGNOSIS: Right ear lesion TISSUE SUBMITTED: A- Right ear lesion MICROSCOPIC DIAGNOSIS SKIN, RIGHT EAR, SHAVE BIOPSY: * Squamous cell carcinoma, ulcerated, superficial portion. COMMENT The diagnosis was communicated to Grisel WEST at 3:20 pm, 08/27/2024. MICROSCOPIC DESCRIPTION Slides are reviewed. GROSS DESCRIPTION Received in fixative is one container labeled with the patient's name and designated right ear lesion. The specimen consists of one very small shave biopsy of alexis-white skin measuring 4 x 3 x 2 mm. It has a nodular surface. TE1 08/22/24 CPT:32041
== END | disposition home or self-care (01) ==
LOC: LABSPEC 15:07
PROVIDERS: PCP Family Medicine; Referring Provider Otolaryngology; Visit Provider Otolaryngology
DX: C44.222 Squamous cell carcinoma of skin of right ear and external auricular canal (principal)
CPT/HCPCS: 88305

== ENCOUNTER → 2024-09-04 | Outpatient (CLI) | payer MEDICARE, OTHER, SELFPAY ==
[2024-09-04 18:03] LABS: Absolute Neutrophil Count 6.5 X10^3/uL (2.0-7.7); Basophil# 0.05 X10^3/uL; Basophil% 0.5 % (0-1); Eosinophil# 0.23 X10^3/uL; Eosinophils% 2.5 % (0-5); Hemoglobin 12.1 g/dL (12.0-15.0); Lymphocyte % 19.3 % (19-41); Mean Corp Hgb Conc 33.6 g/dL (32-36); Mean Corpuscular Hgb 31.2 pg (27.0-32.0); Mean Corpuscular Volume 92.8 fL (81-99); Monocyte# 0.75 X10^3/uL; NRBC Flagged by Analyzer 0 % (0-5); Neutrophil # 6.48 X10^3/uL (2.7-7.7); Neutrophil % 69.3 % (47-70); Platelet Count 258 K/mm3 (150-450); RBC Distribution Width CV 14.8 % (11.6-14.6); RBC Distribution Width SD 50.4 fl (35.1-43.9); Red Blood Count 3.88 M/mm3 (4.2-5.4); White Blood Count 9.4 K/mm3 (4.4-11.0)
[2024-09-04 19:05] LABS: Hemoglobin A1c 5.6 % (<=5.6)
[2024-09-04 19:25] LABS: ALB/GLOB Ratio 1.5 RATIO (0.9-2.4); AST(SGOT) 22 U/L (<=31); Alanine Aminotransfer ALT/SGPT 11 U/L (<=34); Albumin, Serum 3.8 g/dL (3.4-4.8); Alkaline Phosphatase 71 U/L (35-104); Anion Gap 27 (5-15); BUN 25 mg/dL (4-19); BUN/Creat Ratio 27.8 RATIO (10-20); Calcium,Total 8.9 mg/dL (7.6-11.0); Chloride 106 mmol/L (98-108); Creatinine, Serum 0.89 mg/dL (0.70-1.20); EST Glomerular Filtration Rate 64 (>60); Globulin 2.6 g/dL (2.2-4.2); Glucose 76 mg/dL (70-99); Magnesium 1.8 mg/dL (1.5-2.2); Potassium 3.8 mmol/L (3.3-5.1); Protein, Total 6.4 g/dL (5.9-8.4); Sodium Level 144 mmol/L (133-145); Total Bilirubin 0.29 mg/dL (0.00-1.30)
== END | disposition home or self-care (01) ==
LOC: MFPLAB 16:03
PROVIDERS: PCP Family Medicine; Referring Provider Family Medicine; Visit Provider Family Medicine
DX: I48.0 Paroxysmal atrial fibrillation (principal); R73.02 Impaired glucose tolerance (oral)
CPT/HCPCS: 36415; 80053; 83036; 83735; 85025

== ENCOUNTER 2024-09-16 09:11 | Day surgery (SDC) | payer MEDICARE, OTHER, SELFPAY ==
--- NOTE | 2024-09-09 19:45 | PAT.ANE_ITS ---
Pre-Assessment Diagnosis/Proposed Procedure Planned Operative Procedure(s): RIGHT EAR EXCISION LESION WITH FROZEN SECTION AND FULL SKIN GRAFT Anesthesia History Anesthesia History - director of physical therapy: Anesthesia History - director of physical therapy Hx Hospitalization No 09/09/24 16:16 Any Problems With Anesthesia No 09/09/24 16:16 Cholinesterase deficiency No 09/09/24 16:16 You/Your Family Experience No 09/09/24 16:16 fever (hyperthermia) with Relationship Recent Exposure to Contagious Disease Does patient have nerve No 09/09/24 16:16 stimulator Patient instructed to have device shut off --Does patient have Pacemaker or ICD? When Was Last Pacemaker Check QUESTION #4 FULL TEXT: You/Your Family Experience fever (hyperthermia) with Anesthesia Last Oral Intake Last Oral intake: Last Oral Intake NPO since Meds taken in AM with sips of water? Meds patient instructed to take am of surgery PONV PONV - director of physical therapy: PONV - director of physical therapy Female Yes 09/09/24 16:16 HX of Motion Sickness No 09/09/24 16:16 HX of N/V After Surgery No 09/09/24 16:16 Non-Smoker Yes 09/09/24 16:16 Duration of Surgery greater Yes 09/09/24 16:16 than 60 minutes Number of Risk Factors 3 09/09/24 16:16 PONV Score Moderate Risk 09/09/24 16:16 Height & Weight Height & Weight: Anesthesia: Height & Weight Height 5 ft 2 in 04/24/24 14:53 Respiratory Assessment Respiratory Assessment - director of physical therapy: Respiratory Tract Infection Hx - director of physical therapy Hx Respiratory Tract Infection No 09/09/24 16:16 STOP Sleep Apnea STOP Sleep Apnea - director of physical therapy: STOP Sleep Apnea - director of physical therapy Hx Hypertension Yes: CONTROLLED WITH MEDS 09/09/24 16:16 Hx Sleep Apnea No 09/09/24 16:16 CPAP BIPAP Do you snore loudly (louder No 09/09/24 16:16 than talking or can be heard Do you often feel tired/ No 09/09/24 16:16 fatigued/ sleepy during daytime? Has anyone observed you stop No 09/09/24 16:16 breathing during sleep? STOP Results Negative 09/09/24 16:16 QUESTION #5 FULL TEXT : Do you snore loudly (louder than talking or can be heard through closed doors)? Tobacco Use History Tobacco Use History - director of physical therapy: Tobacco Use History - director of physical therapy Tobacco Use Smoking Status Never smoker 09/09/24 16:16 Hx Tobacco Use No 09/09/24 16:16 Years Smoking Packs Smoked per Day Smoking Cessation Date was within the last 15 years Hx Smoking Cessation Date Hx Smoking Cessation Counseling Hematologic Medial History Hematologic Hx - director of physical therapy: Hematologic Medical Hx - destaticizer feeder Hx of Blood Transfusion No 09/09/24 16:16 Hx of Transfusion in last 3 No 09/09/24 16:16 Months Date of Last Transfusion (if within last 3 months) Ever experience any problems No 09/09/24 16:16 with transfusion(s)? Specify any problems Hx of Preganancy in last 3 No 09/09/24 16:16 Months Nurse Filling Out Transfusion DSCHRIBER 09/09/24 16:16 & Questions: Date: 09/09/24 09/09/24 16:16 Time: 16:17 09/09/24 16:16 Patient unable to answer at this time (ie. confused, unrespo /Reproduction History /Reproductive History - director of physical therapy: /Reproductive Hx- director of physical therapy Hx Now No 09/09/24 16:16 Gestational Age (in weeks): EDC: Hx Hx Para Hx Section SAB No 09/09/24 16:16 COUNT INCLUDES THE [facility] Medical History (Updated 09/09/24 @ 16:22 by Agata Arredondo) Wears contact lenses Cancer Post-menopausal Arthritis Shortness of breath on exertion History of edema History of Holter monitoring History of echocardiogram History of stress test Cardiology follow-up encounter Essential hypertension Hyperlipidemia PAF (paroxysmal atrial fibrillation) Non-smoker Pulmonary fibrosis Home Medications ?Medication ?Instructions ?Recorded ?Last Taken ?Type atenolol 100 mg tablet 100 mg PO QHS 05/19/21 Unkno wn History atorvastatin 20 mg tablet 20 mg PO QHS 05/19/21 Unknow n History albuterol sulfate 90 mcg/actuation 2 inh inhalation Q8 H PRN shortness 07/10/22 Unknown History aerosol inhaler of breath or wheezing apixaban 5 mg tablet (Eliquis) 5 mg PO BID 09/14/22 Un known History multivitamin 1 tab PO DAILY 09/14/22 Unkn own History amlodipine 5 mg tablet 5 mg PO DAILY 10/24/23 Unkno wn History Allergy/AdvReac Type Severity Reaction Status Date / Time No Known Allergies Allergy Verified 09/09/24 16:12 Family History Father Sudden cardiac , Onset Age: 62 Sister Heart disease Heart failure Brother Heart disease Heart failure Surgical History (Updated 09/09/24 @ 16:22 by Agata Arredondo) Hx of breast biopsy History of total right knee replacement History of partial hysterectomy Social History household members: family Smoking Status: Never smoker alcohol intake: never substance use type: does not use caffeine: No Audit: Pertinent Findings Pertinent Findings EKG Perinent findings: May 17, 2023. Atrial fibrillation. Inferior infarct?seen on or before May 19, 2021. Stress test pertinent findings: October 25, 2022. Ejection fraction is 71%. No areas of reversibility are noted to suggest ischemia. And no previous infarct is noted. Echo (EF%) pertinent findings: May 02, 2022. Ejection fraction of 60%. PA systolic pressure is 34 mmHg. No aortic stenosis is noted. Consult pertinent findings: April 24, 2024. Jelani GALLAGHER-C. 1. History of paroxysmal atrial fibrillation-currently in regular rhythm on exam. Heart rate is well-controlled. Stress test and echo are as above. She is to continue apixaban and atenolol. Continue to monitor for A-fib. 2. Hypertension-pressures are elevated in the office. She states her pressures at home are well-controlled. Patient is to monitor blood pressures at home and notify us if they are continuously elevated. Additional pertinent findings: 24-hour Holter-07/21/2022-patient had 33.3% of the scan in atrial fibrillation/flutter. 1.6% of the scan was PSVC's. 0.7% of the total QRS complexes were PVCs. Patient's diary recorded no symptoms. Recommendation Anesthesia Recommendation Anesthesia recommendation: OPTIMIZED for anesthesia
[2024-09-16] VITALS (8 sets, daily range): BP systolic 131–155; BP diastolic 60–100; PULSE 67–73; RESP 16–18; TEMP 36–36.2; O2SAT 93–98; BMI 33.8
[2024-09-16] MEDS: 0.9% Normal Saline (1000mL) 1,000 ML 15 ML IV (09:33)
--- NOTE | 2024-09-16 09:49 | PCM.PRE.AN2 ---
ASA Classification* ASA Classification ASA Classification: 3 Assessment & Plan Anesthesia* Anesthesia Assessment Anesthesia Assessment: Discussed sedation and/or anesthesia options, risks, benefits, and alternatives with patient/parents/legal guardian/POA. Questions invited. The patient/parents/legal guardian/POA seems to understand and agrees to proceed with anesthesia plan. Reviewed the physical assessment, medical history, allergy history and patient home medications list prior to surgery/procedure/anesthetic and documented any changes. Performed airway and anesthesia risk assessments. Anesthesia Type Anesthesia Type: General History Source History Obtained from:: Patient and Chart Anesthesia Focused Assessment* Temperature: 96.8 F Pulse Rate: 73 Blood Pressure: 155/69 Respiratory Rate: 16 Pulse Ox: 97 Oxygen Delivery Method: Room Air Airway Assessment Mouth opens: >3 cm Mallampati Score: III Teeth Condition: Caps/Crowns and Missing (Patient missing 1 right upper molar. Rest are tight.) Neck Range of motion (ROM): Limited ROM (Slight decrease in extension.) Focused Labs Anesthesia Preop lab: CBC WBC 9.4 K/mm3 (4.4-11.0) 09/04/24 16:03 09/04/24 RBC 3.88 M/mm3 (4.2-5.4) L 09/04/24 16:03 09/04/24 Hgb 12.1 g/dL (12.0-15.0) 09/04/24 16:03 09/04/24 Hct 36.0 % (37-47) L 09/04/24 16:03 09/04/24 Plt Count 258 K/mm3 (150-450) 09/04/24 16:03 09/04/24 CHEMISTRY Potassium 3.8 mmol/L (3.3-5.1) 09/04/24 16:03 09/04/24 Sodium 144 mmol/L (133-145) 09/04/24 16:03 09/04/24 Magnesium 1.8 mg/dL (1.5-2.2) 09/04/24 16:03 09/04/24 BUN 25 mg/dL (4-19) H 09/04/24 16:03 09/04/24 Creatinine 0.89 mg/dL (0.70-1.20) 09/04/24 16:03 09/04/24 Glucose 76 mg/dL (70-99) 09/04/24 16:03 09/04/24 TSH 2.120 uIU/mL (0.358-3.740) 06/02/24 11:41 06/02/24 COAG Pre-Assessment Diagnosis/Proposed Procedure Planned Operative Procedure(s): RIGHT EAR EXCISION LESION WITH FROZEN SECTION AND FULL SKIN GRAFT Anesthesia History 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 When Was Last Pacemaker Check QUESTION #4 FULL TEXT: You/Your Family Experience fever (hyperthermia) with Anesthesia Last Oral Intake Last Oral intake: Last Oral Intake NPO since 20:00 09/16/24 09:30 Meds taken in AM with sips of Yes 09/16/24 09:30 water? Meds patient instructed to AMLODIPINE 09/16/24 09:30 take am of surgery Any additional information?: Yes Meds taken in AM with sips of water?: Yes PONV PONV - computer typesetter keyliner: PONV - computer typesetter keyliner Female Yes 09/09/24 16:16 HX of Motion Sickness No 09/09/24 16:16 HX of N/V After Surgery No 09/09/24 16:16 Non-Smoker Yes 09/09/24 16:16 Duration of Surgery greater Yes 09/09/24 16:16 than 60 minutes Number of Risk Factors 3 09/09/24 16:16 PONV Score Moderate Risk 09/09/24 16:16 Height & Weight Height & Weight: Anesthesia: Height & Weight Height 5 ft 2 in 09/16/24 09:30 Weight: 84 kg 09/16/24 09:30 Body Mass Index (BMI) 33.8 09/16/24 09:30 Respiratory Assessment Respiratory Assessment - computer typesetter keyliner: Respiratory Tract Infection Hx - computer typesetter keyliner Hx Respiratory Tract Infection No 09/09/24 16:16 STOP Sleep Apnea STOP Sleep Apnea - computer typesetter keyliner: STOP Sleep Apnea - computer typesetter keyliner Hx Hypertension Yes: CONTROLLED WITH MEDS 09/09/24 16:16 Hx Sleep Apnea No 09/09/24 16:16 CPAP BIPAP Do you snore loudly (louder No 09/09/24 16:16 than talking or can be heard Do you often feel tired/ No 09/09/24 16:16 fatigued/ sleepy during daytime? Has anyone observed you stop No 09/09/24 16:16 breathing during sleep? STOP Results Negative 09/09/24 16:16 QUESTION #5 FULL TEXT : Do you snore loudly (louder than talking or can be heard through closed doors)? 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 Specify any problems Hx of Preganancy in last 3 No 09/09/24 16:16 Months Nurse Filling Out Transfusion DSCHRIBER 09/09/24 16:16 & Questions: Date: 09/09/24 09/09/24 16:16 Time: 16:17 09/09/24 16:16 Patient unable to answer at this time (ie. confused, unrespo /Reproduction History /Reproductive History - computer typesetter keyliner: /Reproductive Hx- computer typesetter keyliner Hx Now No 09/09/24 16:16 Gestational Age (in weeks): EDC: Hx Hx Para Hx Section SAB No 09/09/24 16:16 Active Medications Active Medications: Current Medications Generic Name Dose Route Start Last Admin Trade Name Freq PRN Reason Stop Dose Admin Sodium Chloride 1,000 mls @ 15 mls/hr 09/16/24 09:20 09/16/24 09:33 IV 09/21/24 22:39 15 mls/hr .Q48H RIAZ Administration PFSH Medical History Wears contact lenses Cancer Post-menopausal Arthritis Shortness of breath on exertion History of edema History of Holter monitoring History of echocardiogram History of stress test Cardiology follow-up encounter Essential hypertension Hyperlipidemia PAF (paroxysmal atrial fibrillation) Non-smoker Pulmonary fibrosis Home Medications ?Medication ?Instructions ?Recorded ?Last Taken ?Type atenolol 100 mg tablet 100 mg PO QHS 05/19/21 09/15/24 History atorvastatin 20 mg tablet 20 mg PO QHS 05/19/21 09/15/24 History albuterol sulfate 90 mcg/actuation 2 inh inhalation Q8H PRN shortness 07/10/22 09/15/24 History aerosol inhaler of breath or wheezing apixaban 5 mg tablet (Eliquis) 5 mg PO BID 09/14/22 09/12/24 History multivitamin 1 tab PO DAILY 09/14/22 09/15/24 History amlodipine 5 mg tablet 5 mg PO DAILY 10/24/23 09/16/24 History Allergy/AdvReac Type Severity Reaction Status Date / Time No Known Allergies Allergy Verified 09/16/24 09:29 Family History Father Sudden cardiac , Onset Age: 62 Sister Heart disease Heart failure Brother Heart disease Heart failure Surgical History Hx of breast biopsy History of total right knee replacement History of partial hysterectomy Social History household members: family Smoking Status: Never smoker alcohol intake: never substance use type: does not use caffeine: No Review of Systems (Anesthesia) ROS Narrative System reviewed and no additional complaints, except as documented.
[2024-09-16] MEDS: Lidocaine 1% /Epi 1:100 (20ml) 20 ML Vial (10:54)
--- NOTE | 2024-09-16 10:55 | LES_PTH ---
PATIENT: EDUARDO ARRIAGA [place] [facility] [id number] AGE/SX: 84/F ROOM: RE09/16/[address]: Dr. Primitivo Clinton MD : 1940 BED: DIS: 09/16/2024 SPEC #: [id number] RECD: 09/16/24 13:11 STATUS: LIEN STEVAN #: [id number] RICKEY: 09/16/24 10:[address]: Primitivo Clinton DEPT: SURGICAL PATHOLOGY RECD BY: Bobby Sosa ENTERED: 09/16/24 13:14 SP TYPE: Lesion OTHR DR: Dr. 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 Right ear lesion, excision: (A1) Basal cell carcinoma of superior tip, margins free. (A2) Basal cell carcinoma of inferior tip involves deep and peripheral surgical margins. (A3) Basal cell carcinoma involves lateral and medial margins of superior half of the excision; deep margin free. (A4) Basal cell carcinoma involves lateral, media, and deep surgical margins of inferior half. B. Superior lateral margin, excision: Margin positive. C. Superior medial margin, excision: Margin positive. D. Deep margin, excision: Margin free/ negative. E. Inferior margin, excision: Margin positive. 09/16/2024 MICROSCOPIC DIAGNOSIS A. Skin, right ear, excision: - Basal cell carcinoma, ulcerated, nodular type with sclerosing features. - superior tip, margins free. - inferior tip, deep and peripheral margins positive for basal cell carcinoma. - superior half of excision, medial and lateral margins positive, deep margin free. - inferior half of excision, medial, lateral, and deep margins involved. B. Skin, right ear, superior lateral margin, re-excision: - Basal cell carcinoma. C. Skin, right ear, superior medial margin, re-excision: - Basal cell carcinoma. D. Right ear, deep margin, re-excision: - No carcinoma seen. - Cartilage noted. E. Skin, right ear, inferior margin, re-excision: - Basal cell carcinoma. MICROSCOPIC DESCRIPTION Slides are reviewed. GROSS DESCRIPTION A. Received fresh for intraoperative consultation in a container labeled with the patient's name, date of , and right ear lesion is an oriented, ovoid skin excision with a short stitch indicating superior and long stitch indicating lateral. The specimen is 2.5 cm from superior to inferior, 0.9 cm from medial to lateral, with an excisional depth up to 0.4 cm. The engle-pink epidermis is diffusely roughened. The lateral half is inked blue, and the medial half is inked black. The specimen is serially sectioned from superior to inferior to reveal engle-pink, uniform and rubbery surfaces. Submitted entirely for frozen section analysis; the frozen section remnants are submitted entirely as follows:A1. Superior tip, perpendicularA2. Inferior tip, perpendicularA3. Superior half of midportion of specimenA4. Inferior half of midportion of specimen B. Received fresh for intraoperative consultation in a container labeled with the patient's name, date of , and superior lateral margin right ear is an unoriented strip of engle-pink skin measuring 0.4 x 0.2 cm with a depth of 0.1 cm. The deep margin is inked green. The specimen is submitted entirely for frozen section analysis. The remaining remnants are submitted entirely in B1. C. Received fresh for intraoperative consultation in a container labeled with the patient's name, date of , and superior medial margin right ear is an unoriented 0.2 x 0.2 x 0.2 cm fragment of engle-pink possible skin. The deep margin is inked green, and it is submitted entirely for frozen section analysis. The remaining remnants are submitted entirely in C1. D. Received fresh for intraoperative consultation in a container labeled with the patient's name, date of , and deep margin is a 0.3 x 0.2 x 0.2 cm unoriented fragment of red-engle soft tissue. Submitted in toto for frozen section analysis. The remaining remnants are submitted entirely in D1. E. Received fresh for intraoperative consultation in a container labeled with the patient's name, date of , and inferior margin right ear is an unoriented 0.4 x 0.2 cm strip of engle-pink skin with a depth of 0.2 cm. The deep margin is inked green, and it is submitted entirely for frozen section analysis. The remaining remnants are submitted entirely in E1. [facility] 09-16-2024 CPT:[id number]
[2024-09-16] MEDS: Mupirocin Ointment 22gm Tube 1 APPLIC (12:20)
--- NOTE | 2024-09-16 12:44 | PCM.POST.ANE ---
Anesthesia: Postop Eval I Current Vital Signs Temperature: 97.1 F Pulse Rate: 72 Blood Pressure: 155/100 Respiratory Rate: 18 Pulse Ox: 97 Oxygen Delivery Method: Room Air Assessment Airway patent: Yes Spontaneous unlabored respirations: Yes Mental status: Awake and Calm nausea: No Vomiting: No Anesthesia Complication: No Fluid Hydration Crystalloid volume administer (ml): 1,100 Total IV fluid infused: 1,100 Progress Note Anesthesia document: Postop Eval 1 completed: Yes
--- NOTE | 2024-09-16 13:22 | DCINST_ITS ---
Discharge Instructions Diet Discharge Diet: No restrictions DC O2, CPAP, BIPAP needs Home O2 Discharge instructions: No Dressing / Incision Discharge Activity: Return to Normal Activity Dressing / Incision Call your doctor if your incision/area has: Sudden Increased Bleeding and Increased Pain/ Swelling Additional Dressing/Incision Instructions:: keep ear dry. place mupirocin ointment to neck incision three times daily. Follow Up Care Please Follow Up With: Primitivo Clinton MD When: 1 week Test Results: Test results from this visit will be discussed in further detail at your follow- up appointment, if applicable. Discharge Plan Admission Attending Provider: Primitivo Clinton Primary Care Provider: Michael Harkins Instructions Print Language: Faroese Discharge Orders/Prescriptions Prescriptions: No Action multivitamin Tablet 1 tab PO DAILY Eliquis 5 mg tablet 5 mg PO BID amlodipine 5 mg tablet 5 mg PO DAILY atorvastatin 20 mg tablet 20 mg PO QHS atenolol 100 mg tablet 100 mg PO QHS albuterol sulfate 90 mcg/actuation HFA aerosol inhaler 2 inh INHALATION Q8H PRN (Reason: shortness of breath or wheezing) Patient Comments: INHALE 2 PUFF BY MOUTH 4 TIMES DAILY NEEDED FOR COUGH/WHEEZING/SHORTNESS OF BREATH Referrals / Follow Up: Michael Harkins MD [Primary Care Provider] - Disposition Disposition (needs filled in before D/C Order can be placed): Home, Self Care
--- NOTE | 2024-09-16 13:24 | PCM.OPRPT ---
Problems Associated Problem List Diagnoses (1) Basal cell carcinoma of ear: Operative Report (Standard) Operative Information Date of Procedure: 09/16/24 Pre-Operative Diagnosis: right ear lesion Post-Operative Diagnosis: right ear basal cell carcinoma Surgery/Procedure Performed: 1. excision right ear basal cell carcinoma, 2 x 3cm 2. full thickness skin graft, neck - 3 x 3 cm log inspector: No Type of Anesthesia: General RN Documented Start/Stop Times: Operation Date: 09/16/24 10:55 Case Time Into Pre-Op 09/16/24 09:19 Out of Pre-Op 09/16/24 10:32 Anesthesia Start 09/16/24 10:35 Into Room 09/16/24 10:35 Procedure Start 09/16/24 10:54 Procedure End 09/16/24 12:35 Anesthesia End 09/16/24 12:41 Out of Room 09/16/24 12:41 Into Recovery 09/16/24 12:44 Into Phase II Recovery 09/16/24 13:17 Out of Recovery 09/16/24 13:17 Out of Phase II 09/16/24 14:35 Procedure Start Time: 10:55 Procedure Stop Time: 13:25 Select all DRAINS/GRAFTS/IMPLANTS that apply: Graft Graft details: 5 x 3 cm Estimated Blood Loss: none Specimen collected: Yes Description of specimen(s) removed: right conchal bowl lesion, 3 x 3 cm Description of surgery: on the day of the procedure, after appropriate informed consent was obtained, the patient was brought to the operating room and placed in supine position on the operating table. she was placed under general anesthesia by the anesthesiologist. the right ear and right neck were injected with lidocaine/epinephrine. the right ear lesion measured 3cm x 3cm in diameter. this was excised using a north fork blade. this returned basal cell carcinoma on frozen section. original biopsies sent returned squamous cell carcinoma. thus, additional 4mm margins were taken with a north fork blade and then additional peripheral margins were taken. after numerous margins were taken and several returned positive, it was recognized that this was likely a diffuse subcutaneous lesion that may need adjuvant radiation and that continued excision was going to leave a defect too large for a full thickness skin graft. a 3cm elliptical incision was made in the left neck. a full thickness skin graft was taken and trimmed accordingly. the defect was roughly 5 x 3 cm. the neck was undermined 1cm circumferentially and closed with 4-0 vicryl and 5-0 fast gut. the graft was placed in the 5cm x 3cm defect in the right conchal bowl, after the graft was significantly pie-crusted to add surface area. this was sutured with 4-0 chromic and a bolster was fixed with 2-0 prolene. the patient was awoken from anesthesia and transferred to the PACU in stable condition. Surgical Findings: n/a Complications Complications: No
--- NOTE | 2024-09-16 19:19 | POSTOPAN2_ITS ---
Anesthesia Postop Eval I Sum Postop Eval Completion status Anesthesia document: Postop Eval 1 completed: Yes Anesthesia Postop Eval I Summary Anesthesia Postop Eval I Summary: Anesthesia Postop Eval I: Assessment Summary Airway patent Yes 09/16/24 12:45 CABLE TOOL OPERATOR.[email or web address] Spontaneous unlabored Yes 09/16/24 12:45 CABLE TOOL OPERATOR.GDOTT respirations Mental status Awake,Calm 09/16/24 12:45 CABLE TOOL OPERATOR.GDOTT nausea No 09/16/24 12:45 CABLE TOOL OPERATOR.GDOTT Vomiting No 09/16/24 12:45 CABLE TOOL OPERATOR.GDOTT Anesthesia Postop Eval I: Fluid Summary Crystalloid volume administer 1,100 09/16/24 12:45 CABLE TOOL OPERATOR.GDOTT (ml) Colloids volume administered ( ml) Blood Product volume administered (ml) Total IV fluid infused 1,100 09/16/24 12:45 CABLE TOOL OPERATOR.GDOTT Anesthesia Postop Eval I: Summary Notes Anesthesia Complication No 09/16/24 12:45 CABLE TOOL OPERATOR.GDOTT Anesthesia Complication Comment: Post-operative progress note Anesthesia: Postop Eval II Evaluation Mental status: Awake and Calm Pain Level: 1 nausea: No Vomiting: No Complications Anesthesia Complication: No
--- NOTE | 2024-09-16 19:19 | PCM.POSTANE2 ---
Anesthesia Postop Eval I Sum Postop Eval Completion status Anesthesia document: Postop Eval 1 completed: Yes Anesthesia Postop Eval I Summary Anesthesia Postop Eval I Summary: Anesthesia Postop Eval I: Assessment Summary Airway patent Yes 09/16/24 12:45 DIRECTOR OF BUSINESS DEVELOPMENT.GDOTT Spontaneous unlabored Yes 09/16/24 12:45 DIRECTOR OF BUSINESS DEVELOPMENT.GDOTT respirations Mental status Awake,Calm 09/16/24 12:45 DIRECTOR OF BUSINESS DEVELOPMENT.GDOTT nausea No 09/16/24 12:45 DIRECTOR OF BUSINESS DEVELOPMENT.GDOTT Vomiting No 09/16/24 12:45 DIRECTOR OF BUSINESS DEVELOPMENT.GDOTT Anesthesia Postop Eval I: Fluid Summary Crystalloid volume administer 1,100 09/16/24 12:45 DIRECTOR OF BUSINESS DEVELOPMENT.GDOTT (ml) Colloids volume administered ( ml) Blood Product volume administered (ml) Total IV fluid infused 1,100 09/16/24 12:45 DIRECTOR OF BUSINESS DEVELOPMENT.GDOTT Anesthesia Postop Eval I: Summary Notes Anesthesia Complication No 09/16/24 12:45 DIRECTOR OF BUSINESS DEVELOPMENT.GDOTT Anesthesia Complication Comment: Post-operative progress note Anesthesia: Postop Eval II Evaluation Mental status: Awake and Calm Pain Level: 1 nausea: No Vomiting: No Complications Anesthesia Complication: No
== END 2024-09-16 14:35 | disposition home or self-care (01) ==
LOC: SDC 09:12 → AC 09:14
PROVIDERS: PCP Family Medicine; Referring Provider Otolaryngology; Visit Provider Otolaryngology
PROC: (CPT 11646; principal; 2024-09-16 10:45)
DX: C44.212 Basal cell carcinoma of skin of right ear and external auricular canal (principal); I48.0 Paroxysmal atrial fibrillation; I10 Essential (primary) hypertension; E78.5 Hyperlipidemia, unspecified; Z79.899 Other long term (current) drug therapy; Z79.01 Long term (current) use of anticoagulants; Z79.51 Long term (current) use of inhaled steroids
CPT/HCPCS: 11646; 15240; 00300; 88305; 88331; 88332; J2405

== ENCOUNTER → 2024-10-28 | Outpatient (CLI) | payer MEDICARE, OTHER, SELFPAY ==
[2024-10-28 16:02] LABS: AST(SGOT) 17 U/L (<=31); Alanine Aminotransfer ALT/SGPT 14 U/L (<=34); Alkaline Phosphatase 65 U/L (35-104)
== END | disposition home or self-care (01) ==
LOC: MTLAB 11:30
PROVIDERS: PCP Family Medicine; Referring Provider Internal Medicine Pulmonary Disease; Visit Provider Internal Medicine Pulmonary Disease
DX: Z79.899 Other long term (current) drug therapy (principal)
CPT/HCPCS: 36415; 84075; 84450; 84460

== ENCOUNTER → 2025-01-15 | Outpatient (CLI) | payer MEDICARE, OTHER, SELFPAY ==
[2025-01-15 12:51] LABS: Hematocrit 38.2 % (37-47); Hemoglobin 12.5 g/dL (12.0-15.0); Immature Granulocytes Count 0.040 X10^3/uL (0.0-0.0); Mean Corp Hgb Conc 32.7 g/dL (32-36); Mean Corpuscular Volume 94.1 fL (81-99); Mean Platelet Vol. 10.2 fl (6.2-12.0); NRBC Flagged by Analyzer 0 % (0-5); Platelet Count 269 K/mm3 (150-450); RBC Distribution Width CV 13.9 % (11.6-14.6); RBC Distribution Width SD 48.0 fl (35.1-43.9); Red Blood Count 4.06 M/mm3 (4.2-5.4); White Blood Count 11.1 K/mm3 (4.4-11.0)
[2025-01-15 13:33] LABS: Anion Gap 11 (5-15); BUN 22 mg/dL (4-19); BUN/Creat Ratio 26.8 RATIO (10-20); Calcium,Total 9.7 mg/dL (7.6-11.0); Carbon Dioxide 26.1 mmol/L (21.0-32.0); Chloride 104 mmol/L (98-108); Glucose 98 mg/dL (70-99); Magnesium 2.3 mg/dL (1.5-2.2); Potassium 4.6 mmol/L (3.3-5.1); Pro- Brain NATRIURETIC PEPTIDE 1858 pg/mL (<=1800)
== END | disposition home or self-care (01) ==
LOC: LAB 12:20
PROVIDERS: PCP Family Medicine; Referring Provider Nurse Practitioner Family; Visit Provider Nurse Practitioner Family
DX: R06.00 Dyspnea, unspecified (principal); I48.0 Paroxysmal atrial fibrillation
CPT/HCPCS: 36415; 80048; 83735; 83880; 84439; 84443; 85025

== ENCOUNTER → 2025-02-05 | Outpatient (CLI) | payer MEDICARE, OTHER, SELFPAY ==
--- NOTE | 2025-02-05 12:44 | ECHOD_ITS ---
Reason For Study Reason For Study: RE-EVALUATE EF & ATRIAL SIZE Procedure This was a 2D Doppler, Color Flow transthoracic echocardiogram. Exam performed in department. Left Ventricle Normal LV size. The left ventricular ejection fraction is 45 %. No regional wall motion abnormalities noted. Right Ventricle Normal RV size. Normal systolic function. Atria The left atrium is moderately enlarged. Normal right atrium. Mitral Valve There is mild to moderate mitral annular calcification. Mild (1+) eccentric mitral valve insufficiency. Tricuspid Valve Normal tricuspid valve. Mild (1+) tricuspid valve insufficiency. Pulmonary artery systolic pressure is 35 mmHg. Aortic Valve Trisinus/trileaflet aortic valve. Great Vessels Normal aortic root. The pulmonary artery is normal size. Inferior vena cava collapse with respiration. Pericardium/Pleural No pericardial effusion. MMode/2D Measurements & Calculations LVIDd: 4.9 cm IVSd: 1.2 cm CO(Teich): 6.3 l/min LVIDs: 2.7 cm LVPWd: 1.1 cm RVDd: 3.6 cm FS: 44.4 % Ao root diam: 3.7 cm LAV(MOD-bp): 86.4 ml LVAd ap4: 19.3 cm2 LAV(MOD-bp) Indexed: 46.2 ml/m2 LVLd ap4: 5.9 cm LAV(MOD-sp2): 83.7 ml EDV(MOD-sp4): 51.5 ml LAV(MOD-sp4): 83.2 ml EDV(sp4-el): 53.5 ml LVAs ap4: 13.5 cm2 LVLs ap4: 5.4 cm ESV(MOD-sp4): 28.3 ml ESV(sp4-el): 28.5 ml EF(MOD-sp4): 45.1 % EF(sp4-el): 46.7 % CO(MOD-sp4): 1.7 l/min SV(MOD-sp2): 29.7 ml LVAd ap2: 22.2 cm2 SV(MOD-sp4): 23.2 ml LVLd ap2: 6.5 cm SI(MOD-sp2): 15.9 ml/m2 EDV(MOD-sp2): 61.1 ml SI(MOD-sp4): 12.4 ml/m2 EDV(sp2-el): 64.5 ml LVAs ap2: 14.8 cm2 LVLs ap2: 5.5 cm ESV(MOD-sp2): 31.4 ml ESV(sp2-el): 33.3 ml EF(MOD-sp2): 48.6 % SV(sp4-el): 25.0 ml LA A4 area: 25.7 cm2 LA dimension(2D): 4.1 cm TAPSE: 1.8 cm RA A4 area: 19.3 cm2 Doppler Measurements & Calculations MV E max gera: 110.3 cm/sec Lat Peak E' Gera: 15.8 cm/sec Med Peak E' Gera: 7.6 cm/sec E/E' lat: 7.0 E/E' med: 14.6 Ao V2 max: 133.2 cm/sec LV V1 max: 91.2 cm/sec MR max gera: 557.6 cm/sec Ao max P.1 mmHg LV V1 max P.3 mmHg MR max P.3 mmHg Ao V2 mean: 91.8 cm/sec LV V1 mean P.7 mmHg MR mean gera: 449.1 cm/sec Ao mean P.8 mmHg LV V1 mean: 61.4 cm/sec MR mean P.1 mmHg Ao V2 VTI: 29.7 cm LV V1 VTI: 19.9 cm MR VTI: 208.5 cm AV (velocity ratio): 0.67 PA V2 max: 90.4 cm/sec TR max gera: 282.1 cm/sec PA V2 mean: 51.5 cm/sec TR max P.1 mmHg ECHO/Echo Complete Interpretation Summary Normal LV size. The left ventricular ejection fraction is 45 %. The left atrium is moderately enlarged. Pulmonary artery systolic pressure is 35 mmHg. Normal right atrium. Compared to the previous the atria are mildly dilated and the ejection fraction is mild to moderately reduced. Ordering Physician: Michael Davis Referring Physician: Michael Harkins Performed By: Uzma Foreman RDCS, RVT
== END | disposition home or self-care (01) ==
LOC: CVS 12:42
PROVIDERS: PCP Family Medicine; Referring Provider Nurse Practitioner Family; Visit Provider Nurse Practitioner Family
DX: I48.0 Paroxysmal atrial fibrillation (principal); R06.02 Shortness of breath
CPT/HCPCS: 93225; 93226; 93306

== ENCOUNTER → 2025-02-27 | Outpatient (CLI) | payer MEDICARE, OTHER, SELFPAY ==
[2025-02-27 15:57] LABS: AST(SGOT) 22 U/L (<=31); Alanine Aminotransfer ALT/SGPT 9 U/L (<=34); Albumin, Serum 4.1 g/dL (3.4-4.8); Alkaline Phosphatase 79 U/L (35-104); Bilirubin, Direct 0.28 mg/dL (0.00-0.30); Globulin 3.4 g/dL (2.2-4.2)
== END | disposition home or self-care (01) ==
LOC: MTLAB 12:55
PROVIDERS: PCP Family Medicine; Referring Provider Internal Medicine Pulmonary Disease; Visit Provider Internal Medicine Pulmonary Disease
DX: J84.10 Pulmonary fibrosis, unspecified (principal)
CPT/HCPCS: 36415; 80076

== ENCOUNTER → 2025-03-03 | Outpatient (CLI) | payer MEDICARE, OTHER, SELFPAY ==
[2025-03-03 15:58] LABS: AST(SGOT) 22 U/L (<=31); Alanine Aminotransfer ALT/SGPT 9 U/L (<=34); Albumin, Serum 4.0 g/dL (3.4-4.8); Alkaline Phosphatase 79 U/L (35-104); Anion Gap 12 (5-15); BUN 26 mg/dL (4-19); BUN/Creat Ratio 34.2 RATIO (10-20); Calcium,Total 9.4 mg/dL (7.6-11.0); Carbon Dioxide 24.7 mmol/L (21.0-32.0); Chloride 105 mmol/L (98-108); Cholesterol 148 mg/dL (<=200); Globulin 3.3 g/dL (2.2-4.2); Glucose 98 mg/dL (70-99); Low Density Lipoprotein Calc. 75 mg/dL; Potassium 4.1 mmol/L (3.3-5.1); Triglycerides 82 mg/dL; Very Low Density Lipoprotein 16 mg/dL (5-40); Vitamin B12 714 pg/mL (180-914); cholesterol:hdl ratio screen 2.62
== END | disposition home or self-care (01) ==
LOC: MFPLAB 11:58
PROVIDERS: PCP Family Medicine; Visit Provider Family Medicine
DX: R73.02 Impaired glucose tolerance (oral) (principal); E78.5 Hyperlipidemia, unspecified; R93.1 Abnormal findings on diagnostic imaging of heart and coronary circulation
CPT/HCPCS: 36415; 80053; 80061; 82607; 83036

== ENCOUNTER → 2025-03-20 | Outpatient (CLI) | payer MEDICARE, OTHER, SELFPAY ==
[2025-03-20 18:51] LABS: Anion Gap 11 (5-15); BUN 18 mg/dL (4-19); BUN/Creat Ratio 22.4 RATIO (10-20); Calcium,Total 9.2 mg/dL (7.6-11.0); Carbon Dioxide 29.0 mmol/L (21.0-32.0); Chloride 104 mmol/L (98-108); Glucose 164 mg/dL (70-99); Potassium 3.8 mmol/L (3.3-5.1)
== END | disposition home or self-care (01) ==
LOC: MFPLAB 14:08
PROVIDERS: PCP Family Medicine; Visit Provider Family Medicine
DX: I10 Essential (primary) hypertension (principal)
CPT/HCPCS: 36415; 80048

== ENCOUNTER → 2025-04-27 | Outpatient (CLI) | payer MEDICARE, OTHER, SELFPAY ==
[2025-04-27 15:31] LABS: AST(SGOT) 25 U/L (<=31); Alanine Aminotransfer ALT/SGPT 6 U/L (<=34); Albumin, Serum 4.1 g/dL (3.4-4.8); Alkaline Phosphatase 83 U/L (35-104); Bilirubin, Direct 0.26 mg/dL (0.00-0.30); Globulin 3.6 g/dL (2.2-4.2)
== END | disposition home or self-care (01) ==
LOC: MTLAB 11:30
PROVIDERS: PCP Family Medicine; Referring Provider Internal Medicine Pulmonary Disease; Visit Provider Internal Medicine Pulmonary Disease
DX: J84.10 Pulmonary fibrosis, unspecified (principal)
CPT/HCPCS: 36415; 80076